=== PATIENT | male | born 1940 | race Hispanic/Latino ===

== ENCOUNTER 2017-12-31 15:12 | Inpatient (IN) | payer OTHER ==
--- NOTE | 2017-12-31 15:40 | ER ---
Nurse's Notes [facility] Name: Jamey Root Age: 77 yrs Sex: Male : 1940 Arrival Date: 12/31/2017 Time: 15:16 Bed 26 Private MD: Diagnosis: Extended spectrum beta lactamase (ESBL) resistance;Urinary tract infection, site not specified Presentation: 12/31 15:16 Presenting complaint: EMS states: patient was seen by his physician for testicular kr2 swelling and urinating around his catheter, his physician told him to come to ER. Transition of care: patient was not received from another setting of care. Onset of symptoms is unknown. Risk Assessment: Do you want to hurt yourself or someone else? Patient reports no desire to harm self or others. Initial Sepsis Screen: Does the patient meet any 2 criteria? No. Patient's initial sepsis screen is negative. Does the patient have a suspected source of infection? No. Patient's initial sepsis screen is negative. Care prior to arrival: None. 15:16 Method Of Arrival: EMS: [facility] kr2 15:16 Acuity: KRUPA 4 kr2 Triage Assessment: 15:26 General: Appears in no apparent distress. comfortable, well groomed, well nourished, kr2 Behavior is calm, cooperative, appropriate for age. Pain: Complains of pain in Testicles Pain does not radiate. Pain currently is 6 out of 10 on a pain scale. Quality of pain is described as burning, pressure, Is continuous, Alleviated by nothing. EENT: Oral mucosa is moist. Neuro: Level of Consciousness is awake, alert, obeys commands, Oriented to person, place, time, situation, paraplegia. Cardiovascular: Capillary refill < 3 seconds in bilateral fingers Patient's skin is warm and dry. Respiratory: Airway is patent Respiratory effort is even, unlabored, Respiratory pattern is regular, symmetrical. GI: Abdomen is flat, non-distended, Last BM was December 31, 2017. : Owusu in place to gravity drainage Urine is clear. : Reports urinating around catheter. Derm: Skin is intact, is healthy with good turgor, Skin is pink, warm \T\ dry. Musculoskeletal: Historical: - Allergies: 15:25 No Known Allergies; kr2 - Home Meds: 15:25 metformin 500 mg oral tab 1 tab 2 times per day for Type 2 Diabetes Mellitus [Active]; kr2 gabapentin 300 mg Oral cap 1 cap nightly [Active]; levothyroxine 150 mcg tab 1 tab once daily [Active]; - PMHx: 15:25 Anxiety; Chronic pain; Depression; Diabetes - NIDDM; Hypertension; Hypothyroidism; kr2 paraplegic; - PSHx: 15:25 Neck; Back; kr2 - Immunization history:: Adult Immunizations unknown. - Social history:: Smoking status: Patient/guardian denies using tobacco. - Ebola Screening: : No symptoms or risks identified at this time. Screenin:25 Abuse screen: Denies threats or abuse. Denies injuries from another. Nutritional kr2 screening: No deficits noted. Tuberculosis screening: No symptoms or risk factors identified. Fall Risk Gait- Normal/Bed Rest/Wheelchair (0 pts). Assessment: 15:30 General: Appears in no apparent distress. Behavior is calm, cooperative. Pain: Denies hb pain. Neuro: Level of Consciousness is awake, alert, obeys commands, Oriented to person, place, time, situation. Cardiovascular: Capillary refill < 3 seconds Patient's skin is warm and dry. Respiratory: Airway is patent Trachea midline Respiratory effort is even, unlabored, Respiratory pattern is regular, symmetrical, Breath sounds are clear bilaterally. GI: No signs and/or symptoms were reported involving the gastrointestinal system. : suprapubic catheter in place Urine is clear. EENT: No signs and/or symptoms were reported regarding the EENT system. Derm: Skin is intact, is healthy with good turgor, Skin is pink, warm \T\ dry. Musculoskeletal: paraplegic, wheelchair bound. 16:30 Reassessment: Patient appears in no apparent distress at this time. No changes from previously documented assessment. Patient and/or family updated on plan of care and expected duration. Pain level reassessed. Patient is alert, oriented x 3, equal unlabored respirations, skin warm/dry/pink. 17:21 Reassessment: Patient appears in no apparent distress at this time. Patient and/or family updated on plan of care and expected duration. Pain level reassessed. Patient is alert, oriented x 3, equal unlabored respirations, skin warm/dry/pink. Admission ordered, awaiting room assignment at this time. 18:15 Reassessment: Patient appears in no apparent distress at this time. No changes from hb previously documented assessment. Patient and/or family updated on plan of care and expected duration. Pain level reassessed. Patient is alert, oriented x 3, equal unlabored respirations, skin warm/dry/pink. Vital Signs: 15:19 BP 103 / 67; Pulse 70; Resp 17; Temp 97.7; Pulse Ox 97% on R/A; Weight 102.06 kg; kr2 Height 5 ft. 10 in. (177.80 cm); Pain 6/10; 16:00 BP 126 / 76; Pulse 74; Resp 15; Pulse Ox 100% on R/A; hb 17:00 BP 132 / 70; Pulse 71; Resp 15; Pulse Ox 100% on R/A; hb 18:00 BP 127 / 95; Pulse 70; Resp 16; Pulse Ox 100% on R/A; hb 19:25 BP 122 / 71; Pulse 75; Resp 18; Pulse Ox 100% on R/A; Pain 0/10; mg2 15:19 Body Mass Index 32.28 (102.06 kg, 177.80 cm) kr2 ED Course: 15:16 Patient arrived in ED. kr2 15:16 Malvin Katz PA is PHCP. jr8 15:16 Fawad Valenzuela MD is Attending Physician. jr8 15:19 Triage completed. kr2 15:30 Arm band placed on. kr2 15:30 Patient has correct armband on for positive identification. Bed in low position. Call kr2 light in reach. Side rails up X2. Pulse ox on. NIBP on. Door closed. Warm blanket given. Head of bed elevated. 15:39 Willy Ayers MD is Hospitalizing Provider. jr8 15:40 Swati Roberson MD is Hospitalizing Provider. jr8 15:45 Inserted saline lock: 20 gauge in left antecubital area, using aseptic technique. Blood hb collected. 15:45 Initial lab(s) drawn, by me, sent to lab. First set of blood cultures drawn by me. hb 15:58 Grazyna Singh, RN is Primary Nurse. iw 16:00 Second set of blood cultures drawn by me. hb 17:19 Sarina Clay, RN is Primary Nurse. hb 19:34 No provider procedures requiring assistance completed. Patient admitted, IV remains in mg2 place. Administered Medications: 16:06 Drug: Meropenem 1 grams Route: IV; Rate: calculated rate; Site: left antecubital; hb Outcome: 15:40 Decision to Hospitalize by Provider. jay 19:35 Admitted to Med/surg accompanied by tech, via stretcher, room 201, with chart, Report mg2 called to RN August 19:35 Condition: stable 19:35 Instructed on the need for admit, Demonstrated understanding of instructions. 19:55 Patient left the ED. mg2 Signatures: Grazyna Singh RN RN Malvin Jay PA PA jr8 Sarina Clay RN RN Carlota Mari RN RN kr2 Ronnie Leroy RN RN mg2
--- NOTE | 2017-12-31 15:40 | EDPHYS ---
Physician Documentation [facility] Name: Jamey Root Age: 77 yrs Sex: Male : 1940 Arrival Date: 12/31/2017 Time: 15:16 Bed 26 Private MD: ED Physician Fawad Valenzuela HPI: 12/31 16:07 This 77 yrs old Male presents to ER via EMS with complaints of Abnormal Lab jr8 Results. 16:07 The patient has not experienced similar symptoms in the past. The patient has been jr8 recently seen by a physician:. Patient stated that he had urine sample taken a few days ago. Stated that he was having discharge from his penis and episodic testicular swelling. Had been contacted today to come to ED for ESBL urine that will require IV antibiotics . Historical: - Allergies: 15:25 No Known Allergies; kr2 - Home Meds: 15:25 metformin 500 mg oral tab 1 tab 2 times per day for Type 2 Diabetes Mellitus [Active]; kr2 gabapentin 300 mg Oral cap 1 cap nightly [Active]; levothyroxine 150 mcg tab 1 tab once daily [Active]; - PMHx: 15:25 Anxiety; Chronic pain; Depression; Diabetes - NIDDM; Hypertension; Hypothyroidism; kr2 paraplegic; - PSHx: 15:25 Neck; Back; kr2 - Immunization history:: Adult Immunizations unknown. - Social history:: Smoking status: Patient/guardian denies using tobacco. - Ebola Screening: : No symptoms or risks identified at this time. ROS: 16:07 Eyes: Negative for injury, pain, redness, and discharge, ENT: Negative for injury, jr8 pain, and discharge, Neck: Negative for injury, pain, and swelling, Cardiovascular: Negative for chest pain, palpitations, and edema, Respiratory: Negative for shortness of breath, cough, wheezing, and pleuritic chest pain, Abdomen/GI: Negative for abdominal pain, nausea, vomiting, diarrhea, and constipation, Back: Negative for injury and pain, MS/Extremity: Negative for injury and deformity, Skin: Negative for injury, rash, and discoloration, Neuro: Negative for headache, weakness, numbness, tingling, and seizure. 16:07 : Positive for penile discharge, testicular pain Exam: 16:07 Cardiovascular: Regular rate and rhythm with a normal S1 and S2. No gallops, murmurs, jr8 or rubs. Normal PMI, no JVD. No pulse deficits. Respiratory: Lungs have equal breath sounds bilaterally, clear to auscultation and percussion. No rales, rhonchi or wheezes noted. No increased work of breathing, no retractions or nasal flaring. Abdomen/GI: Soft, non-tender, with normal bowel sounds. No distension or tympany. No guarding or rebound. No evidence of tenderness throughout. Back: No spinal tenderness. No costovertebral tenderness. Full range of motion. Skin: Warm, dry with normal turgor. Normal color with no rashes, no lesions, and no evidence of cellulitis. MS/ Extremity: Pulses equal, no cyanosis. Neurovascular intact. Full, normal range of motion. Neuro: Awake and alert, GCS 15, oriented to person, place, time, and situation. Cranial nerves II-XII grossly intact. Motor strength 5/5 in upper extremities. Patient is paraplegic. Sensory grossly intact. Vital Signs: 15:19 BP 103 / 67; Pulse 70; Resp 17; Temp 97.7; Pulse Ox 97% on R/A; Weight 102.06 kg; kr2 Height 5 ft. 10 in. (177.80 cm); Pain 6/10; 16:00 BP 126 / 76; Pulse 74; Resp 15; Pulse Ox 100% on R/A; hb 17:00 BP 132 / 70; Pulse 71; Resp 15; Pulse Ox 100% on R/A; hb 18:00 BP 127 / 95; Pulse 70; Resp 16; Pulse Ox 100% on R/A; hb 19:25 BP 122 / 71; Pulse 75; Resp 18; Pulse Ox 100% on R/A; Pain 0/10; mg2 15:19 Body Mass Index 32.28 (102.06 kg, 177.80 cm) kr2 MDM: 15:16 Patient medically screened. [facility] 15:38 Data reviewed: vital signs, nurses notes, lab test result(s), and as a result, I will [facility] admit patient. Data interpreted: Pulse oximetry: on room air is 97 %. Interpretation: normal. Counseling: I had a detailed discussion with the patient and/or guardian regarding: the historical points, exam findings, and any diagnostic results supporting the discharge/admit diagnosis, lab results, the need for further work-up and treatment in the hospital. Physician consultation: Lexi Lopez MD was called at 15:38, was contacted at 15:38, regarding consult, Wants patient admitted for ESBL. To have Hospitalist to admit and he will consult . 12/31 15:37 Order name: CBC with Diff; Complete Time: 16:12 [facility] 12/31 15:37 Order name: Basic Metabolic Panel; Complete Time: 16:24 [facility] 12/31 15:37 Order name: Blood Culture Adult (2) [facility] 12/31 15:37 Order name: IV; Complete Time: 16:06 [facility] 12/31 16:14 Order name: CONS Physician Consult EDMS Administered Medications: 16:06 Drug: Meropenem 1 grams Route: IV; Rate: calculated rate; Site: left antecubital; hb Disposition: 01/01 07:10 Co-signature as Attending Physician, Fawad Valenzuela MD I agree with the assessment and evaristo plan of care. Disposition: 12/31/17 15:40 Hospitalization ordered by Swtai Roberson for Inpatient Admission. Preliminary diagnosis are Extended spectrum beta lactamase (ESBL) resistance, Urinary tract infection, site not specified. - Bed requested for Telemetry/MedSurg (Inpatient). - Status is Inpatient Admission. mg2 - Condition is Stable. - Problem is new. - Symptoms are unchanged. UTI on Admission? Yes Signatures: Dispatcher [employer] EDMS Licha Sutherland Corey, MD MD cha Roszak, Josh, PA PA jr8 Sarina Clay RN RN Carlota Mari RN RN kr2 Ronnie Leroy RN RN mg2 Corrections: (The following items were deleted from the chart) 12/31 18:42 15:40 Hospitalization Ordered by Swati Roberson MD for Inpatient Admission. Preliminary bd diagnosis is Extended spectrum beta lactamase (ESBL) resistance; Urinary tract infection, site not specified. Bed requested for Telemetry/MedSurg (Inpatient). Status is Inpatient Admission. Condition is Stable. Problem is new. Symptoms are unchanged. UTI on Admission? Yes. jr8 19:55 18:42 12/31/2017 15:40 Hospitalization Ordered by Swati Roberson MD for Inpatient mg2 Admission. Preliminary diagnosis is Extended spectrum beta lactamase (ESBL) resistance; Urinary tract infection, site not specified. Bed requested for Telemetry/MedSurg (Inpatient). Status is Inpatient Admission. Condition is Stable. Problem is new. Symptoms are unchanged. UTI on Admission? Yes. bd
[2017-12-31] MEDS ORDERED: Meropenem 1 GM/100 ML BAG ONE ×2 (16:03→22:50)
[2017-12-31 16:05] LABS: Absolute Lymphocytes (CBC) 2.3 K/uL (0.7-4.9); Absolute Monocytes 0.3 K/uL (0.1-1.3); Absolute Neutrophil 3.9 K/uL (1.8-8.0); Basophils % 0.7 % (0-1.3); Hematocrit 41.2 % (39.6-49.0); Lymphocytes % 33.8 % (15.3-44.8); MCH 28.8 pg (27.0-35.0); MCV 85.8 fL (80-100); MPV 8.9 fL (7.6-11.3)
[2017-12-31 16:21] LABS: Potassium 3.7 mmol/L (3.5-5.1)
[2017-12-31] MEDS ORDERED: ONDANSETRON 4 MG/2 ML VIAL IV PRN (16:33)
[2017-12-31] MEDS ORDERED: ACETAMINOPHEN 500 MG TAB PO PRN (16:33)
[2017-12-31] MEDS ORDERED: Meropenem 1000 MG/VIAL IV SCH (17:00)
[2017-12-31] MEDS ORDERED: Meropenem 1,000 MG in NA CHLORIDE 0.9% 100 ML IV SCH (17:00)
--- NOTE | 2017-12-31 18:29 | P.HP ---
Certification for Inpatient Patient admitted to: Inpatient With expected LOS: >2 Midnights Patient will require the following post-hospital care: None Practitioner: I am a practitioner with admitting privileges, knowledge of patient current condition, hospital course, and medical plan of care. Services: Services provided to patient in accordance with Admission requirements found in Title 42 Section 412.3 of the Code of Federal Regulations Patient History Date of Service: 12/31/17 Primary Care Provider: Dr Lopez - Urology Reason for admission: ESBL UTI History of Present Illness: 77-year-old male with significant past medical history of her office of bilateral lower extremities secondary to spinal cord injury in 2007, diabetes, hypertension, hyperlipidemia, chronic pain syndrome, chronic indwelling suprapubic catheter who presented to the ED from the urologist office for urinary tract infection which was positive for E. es BL and marked LL. Patient has been having worsening of his symptoms and thus was brought over to the ER for IV antibiotics for his resistant bacteria. Patient has had made several attempts to arrange for outpatient IV therapy however due to patient's financial condition along with patient's worsening symptoms patient has unable to do so and thus require hospital admission at this time. Allergies No Known Allergies Allergy (Verified 10/19/14 11:05) Home Medications: Bupropion HCl [Bupropion HCl Sr] 1 tab PO DAILY 05/07/16 Gabapentin [Gralise] 1 tab PO BEDTIME 05/07/16 LORazepam [Ativan*] 1 tab PO TID 05/07/16 Levothyroxine Sodium [Synthroid] 1 tab PO DAILY 05/07/16 Metformin HCl [Glucophage] 1 tab PO BID 05/07/16 Olopatadine [Patanol Opth*] 1 drop EACH EYE DAILY 05/07/16 Trazodone [Desyrel*] 1 tab PO BEDTIME 05/07/16 Meropenem [Merrem] 1,000 mg IV Q8H 14 Days vial 12/11/16 - Past Medical/Surgical History Diabetic: Yes -: Spinal Cord Injury 2007 -: Paralysis in legs bilateral -: Diabetes -: Lower Extremity Edema -: Chronic Pain -: Hypothyroidism -: Anxiety -: Depression -: Spinal Surgery 2007 -: Back surgery -: Skin Grafts -: Suprapubic cath placement -: Circumcision - Family History Mother -: Cancer Brother Notes: Arthritis Sister Notes: Lupus - Social History Alcohol use: No CD- Drugs: No Caffeine use: Yes Review of Systems General: As per HPI Physical Examination - Physical Exam General: Alert, Oriented x3 HEENT: Atraumatic Neck: Supple Respiratory: Clear to auscultation bilaterally, Normal air movement Cardiovascular: Regular rate/rhythm, Normal S1 S2 Gastrointestinal: Normal bowel sounds, Soft and benign, Non-distended, No tenderness Musculoskeletal: Contractures Integumentary: No rashes Neurological: Normal speech, Abnormal strength, Abnormal tone Lymphatics: No axilla or inguinal lymphadenopathy - Studies Laboratory Data (last 24 hrs) 12/31/17 15:45: Sodium 138, Potassium 3.7, BUN 19 H, Creatinine 1.00, Glucose 183 H 12/31/17 15:45: WBC 6.9, Hgb 13.8, Hct 41.2, Plt Count 200 Assessment and Plan - Problems (Diagnosis) (1) UTI (urinary tract infection) Onset Date: 05/08/16 Current Visit: No Status: Acute Plan: Patient with urinary tract infection positive for E. S. BL and more balanced. Sensitive to meropenem. Patient is currently homebound due to paralysis of lower extremity due to spinal cord injury since 2007. Patient does not have the means for transportation neither does have the appropriate tools to help with his suprapubic catheter care along with payment for antibiotics. Patient brought over to the hospital for worsening of his symptoms and for further care. Unable to set up outpatient IV antibiotics due to patient's condition. -IV meropenem b.i.d. 1 g for a total 14 day -urology consulted, recommendations appreciated -patient will need a PICC line placed for long-term acute care placement for IV antibiotics Qualifiers: Urinary tract infection type: catheter-associated UTI Indwelling urinary catheter type: indwelling urethral catheter Encounter type: initial encounter Qualified Code(s): T83.511A - Infection and inflammatory reaction due to indwelling urethral catheter, initial encounter; N39.0 - Urinary tract infection , site not specified (2) Indwelling catheter present on admission Onset Date: 05/08/16 Current Visit: No Status: Chronic (3) Depression Current Visit: No Status: Chronic Qualifiers: Depression Type: unspecified (4) Diabetes mellitus type 2 Onset Date: 03/10/13 Current Visit: No Status: Chronic (5) GERD (gastroesophageal reflux disease) Current Visit: No Status: Chronic Qualifiers: Esophagitis presence: without esophagitis (6) HTN (hypertension) Current Visit: No Status: Chronic Qualifiers: Hypertension type: essential hypertension (7) Hypothyroidism Current Visit: No Status: Chronic Qualifiers: Hypothyroidism type: acquired Qualified Code(s): E03.9 - Hypothyroidism, unspecified (8) Paraplegia following spinal cord injury Current Visit: No Status: Chronic Discharge Plan: Home Plan to discharge in: 24 Hours - Advance Directives Does patient have a Living Will: No Does patient have a Durable POA for Healthcare: Yes - Code Status/Comfort Care Code Status Assessed: Yes Critical Care: No
[2017-12-31] MEDS: NA CHLORIDE 0.9% 1,000 ML IV SCH (21:16)
[2017-12-31] MEDS: ENOXAPARIN 40 MG/0.4 ML SQ SCH (21:16)
[2018-01-01] MEDS ORDERED: Meropenem 1,000 MG in NA CHLORIDE 0.9% 100 ML IV SCH ×2 (01:00→08:00)
[2018-01-01 01:53] VITALS: BMI 32.3
[2018-01-01] MEDS: NA CHLORIDE 0.9% 1,000 ML IV SCH ×4 (03:00→22:49)
[2018-01-01 05:40] LABS: Absolute Lymphocytes (CBC) 2.1 K/uL (0.7-4.9); Absolute Monocytes 0.5 K/uL (0.1-1.3); Absolute Neutrophil 5.8 K/uL (1.8-8.0); Basophils % 0.5 % (0-1.3); Hematocrit 39.3 % (39.6-49.0); Lymphocytes % 24.3 % (15.3-44.8); MCH 28.7 pg (27.0-35.0); MPV 9.1 fL (7.6-11.3); Monocytes % 5.4 % (3.3-12.3); RBC Red Blood Cell Count 4.62 M/uL (4.33-5.43)
[2018-01-01 05:41] LABS: Urine Appearance TURBID; Urine Bilirubin NEGATIVE (NEG); Urine Blood 1+ (NEG); Urine Color YELLOW; Urine Glucose NEGATIVE (NEG); Urine Protein TRACE (NEG); Urine pH 7.5 (5.0-7.0)
[2018-01-01 05:46] LABS: Urine Microscopic Reflex ORDER UMIC
[2018-01-01 05:52] LABS: ALT/SGPT 18 U/L (12-78); AST/SGOT 12 U/L (15-37); Albumin 2.9 g/dL (3.4-5.0); Alkaline Phosphatase 86 U/L (45-117); BUN Blood Urea Nitrogen 17 mg/dL (7-18); Bicarbonate 27 mmol/L (21-32); Bilirubin Total 0.6 mg/dL (0.2-1.0); Glucose Level 99 mg/dL (74-106); Potassium 3.8 mmol/L (3.5-5.1); Protein, Total 7.2 g/dL (6.4-8.2); Sodium Level 138 mmol/L (136-145)
[2018-01-01] MEDS ORDERED: POTASSIUM CL SA 10 MEQ TAB PO ONE (06:03)
[2018-01-01 06:11] LABS: Urine Bacteria LOADED /HPF (NONE SEEN); Urine Culture Reflex Order REFLEXED
[2018-01-01 06:12] LABS: Urine RBC <5 /HPF (NONE SEEN)
[2018-01-01] MEDS ORDERED: SODIUM CHLORIDE 0.9% 10ML INJ IV PRN ×2 (08:00)
[2018-01-01] MEDS ORDERED: PNEUMOCOCCAL VACCINE 0.5 ML IMVAC ONE (08:00)
[2018-01-01] MEDS: ENOXAPARIN 40 MG/0.4 ML SQ SCH (08:19)
[2018-01-01] MEDS: Meropenem 1,000 MG in NA CHLORIDE 0.9% 100 ML IV SCH ×2 (08:22→17:03)
[2018-01-01] MEDS: SODIUM CHLORIDE 0.9% 10ML INJ IV SCH ×2 (08:23→22:50)
--- NOTE | 2018-01-01 08:34 | RAD REPORT ---
EXAM DESCRIPTION: RAD - Chest Single View - 01/01/2018 3:20 am CLINICAL HISTORY: PICC Placement COMPARISON: Chest Single View dated 12/09/2016; Chest Single View dated 12/06/2016; Chest Single View da paul 05/07/2016; CHEST SINGLE VIEW dated 07/10/2012 FINDINGS: Portable chest was obtained following placement of a right upper extremity PICC line. The catheter tip projects over the SVC..
--- NOTE | 2018-01-01 13:34 | P.PN ---
Subjective Date of Service: 01/01/18 Primary Care Provider: Dr Lopez - Urology Chief Complaint: ESBL UTI Patient seen and examined at bedside with RN. Chart reviewed. Case discussed with urology. Currently patient is awaiting setup for home health with IV antibiotics. Patient had ESBL growing. Has PICC line in place already Review of Systems General: As per HPI Physical Examination - Vital Signs Temperature: 97.4 F Blood Pressure: 125/70 Pulse: 68 Respirations: 17 Pulse Ox (%): 0 - Physical Exam General: Alert, In no apparent distress HEENT: Atraumatic, PERRLA, EOMI Neck: Supple, JVD not distended Respiratory: Clear to auscultation bilaterally, Normal air movement Cardiovascular: Regular rate/rhythm, Normal S1 S2 Gastrointestinal: Normal bowel sounds, No tenderness Musculoskeletal: No tenderness Integumentary: No rashes Neurological: Other (Parapelgic) Lymphatics: No axilla or inguinal lymphadenopathy - Studies Laboratory Data (last 24 hrs) 12/31/17 15:45: Sodium 138, Potassium 3.7, BUN 19 H, Creatinine 1.00, Glucose 183 H 12/31/17 15:45: WBC 6.9, Hgb 13.8, Hct 41.2, Plt Count 200 Medications List Reviewed: Yes Assessment & Plan - Problems (Diagnosis) (1) UTI (urinary tract infection) Onset Date: 05/08/16 Current Visit: No Status: Acute Plan: Patient with urinary tract infection positive for ESBL. Sensitive to meropenem. -Patient is currently homebound due to paralysis of lower extremity due to spinal cord injury since 2007. Patient does not have the means for transportation neither does have the appropriate tools to help with his suprapubic catheter care along with payment for antibiotics. -Patient brought over to the hospital for worsening of his symptoms and for further care. -Will try to setup HH if possible -IV meropenem b.i.d. 1 g for a total 14 days -urology consulted, recommendations appreciated -PICC line in place. Qualifiers: Urinary tract infection type: catheter-associated UTI Indwelling urinary catheter type: indwelling urethral catheter Encounter type: initial encounter Qualified Code(s): T83.511A - Infection and inflammatory reaction due to indwelling urethral catheter, initial encounter; N39.0 - Urinary tract infection , site not specified (2) Indwelling catheter present on admission Onset Date: 05/08/16 Current Visit: No Status: Chronic (3) Depression Onset Date: 01/01/18 Current Visit: Yes Status: Chronic Qualifiers: Depression Type: unspecified (4) Diabetes mellitus type 2 Onset Date: 03/10/13 Current Visit: No Status: Chronic (5) GERD (gastroesophageal reflux disease) Onset Date: 01/01/18 Current Visit: Yes Status: Chronic Qualifiers: Esophagitis presence: without esophagitis (6) HTN (hypertension) Onset Date: 01/01/18 Current Visit: Yes Status: Chronic Qualifiers: Hypertension type: essential hypertension (7) Hypothyroidism Onset Date: 01/01/18 Current Visit: Yes Status: Chronic Qualifiers: Hypothyroidism type: acquired Qualified Code(s): E03.9 - Hypothyroidism, unspecified (8) Paraplegia following spinal cord injury Onset Date: 01/01/18 Current Visit: Yes Status: Chronic Discharge Plan: Home Plan to discharge in: 48 Hours - Code Status/Comfort Care Code Status Assessed: Yes Critical Care: No
--- NOTE | 2018-01-01 20:32 | CON ---
History Of Present Illness: A 77-year-old gentleman with significant past medical history of bilater al lower extremity issues secondary to spinal cord injury in 2007, history of diabetes, hypertension, hyperlipidemia, chronic pain syndrome, chronic indwelling Owusu catheter, who presents to the ED fro m the urologist's office(in emergency room with urine culture positive for 2 bugs, one is ESBL and an other one was sensitive to meropenem). He needs a PICC line placed, 7-10 days of IV antibiotics. Pr marina is the patient could not arrange this as an outpatient due to financial and transportation issu es, so was admitted to the hospital and consult a director social service for consultation. He has been admitt ed by the hospitalist service. Allergies: NO KNOWN DRUG ALLERGIES. Home Medications: Baclofen, gabapentin, Ativan, levothyroxine, metformin, olopatadine, trazodone, me ropenem. Past Medical History: He is diabetic, spinal cord injury 2007, paralysis to legs bilaterally, histor y of diabetes, lower extremity edema, chronic pain, hypothyroidism, anxiety, depression, back surgeri es, skin grafts, suprapubic catheter, history of circumcision. Family History: Mother with cancer. Brother with arthritis, lupus. Social History: No alcohol or drug use. Some caffeine use. Review of Systems: 10-point review of system all negative. Physical Examination: General: Alert, oriented, afebrile, stable. HEENT: Atraumatic, normocephalic. Respiratory: Clear. Cardiovascular: S1, S2. Gastrointestinal: Bowel sounds. Musculoskeletal: Some contracture to this lower extremity. Studies: Normal chemistries. White count normal 6.8. Persistent UTI being treated with PICC line and meropenem 1 g IV for total 14 days. Assessment And Plan: He has an indwelling suprapubic catheter changes every 2 weeks. History of dep ression, diabetes type 2, gastroesophageal reflux disease, hypertension, hypothyroidism, paraplegia f ollowing spinal cord injury. Continue management. Get director social service consultation to arrange home medication for him. He does hav e home health. Thank you very much. DIANE/LAZARO Voice ID: [id number] Report ID: [id number]
[2018-01-01] MEDS ORDERED: GABAPENTIN 300 MG CAP PO SCH (21:00)
[2018-01-02] MEDS: Meropenem 1,000 MG in NA CHLORIDE 0.9% 100 ML IV SCH ×3 (01:49→17:18)
[2018-01-02 04:52] LABS: Absolute Lymphocytes (CBC) 2.4 K/uL (0.7-4.9); Absolute Monocytes 0.4 K/uL (0.1-1.3); Absolute Neutrophil 4.4 K/uL (1.8-8.0); Basophils % 0.7 % (0-1.3); Eosinophils % 2.8 % (0-4.4); Hematocrit 38.9 % (39.6-49.0); Lymphocytes % 31.9 % (15.3-44.8); MCV 83.9 fL (80-100); MPV 8.8 fL (7.6-11.3); Monocytes % 5.2 % (3.3-12.3); RBC Red Blood Cell Count 4.63 M/uL (4.33-5.43)
[2018-01-02 05:09] LABS: ALT/SGPT 16 U/L (12-78); AST/SGOT 10 U/L (15-37); Albumin 2.6 g/dL (3.4-5.0); Alkaline Phosphatase 78 U/L (45-117); BUN Blood Urea Nitrogen 11 mg/dL (7-18); Bicarbonate 28 mmol/L (21-32); Bilirubin Total 0.6 mg/dL (0.2-1.0); Glucose Level 127 mg/dL (74-106); Magnesium 1.9 mg/dL (1.8-2.4); Phosphorus 2.2 mg/dL (2.5-4.9); Potassium 3.9 mmol/L (3.5-5.1); Protein, Total 6.7 g/dL (6.4-8.2); Sodium Level 142 mmol/L (136-145)
[2018-01-02] MEDS ORDERED: POTASSIUM PHOS IN 0.9 % NACL 15 MMOL/250 ML BAG IV ONE (06:04)
[2018-01-02] MEDS ORDERED: LEVOTHYROXINE SOD 0.075 MG TAB PO SCH (06:30)
[2018-01-02] MEDS: ENOXAPARIN 40 MG/0.4 ML SQ SCH (08:55)
[2018-01-02] MEDS: SODIUM CHLORIDE 0.9% 10ML INJ IV SCH (08:55)
[2018-01-02 09:41] VITALS: O2SAT 96
--- NOTE | 2018-01-02 15:52 | P.DS ---
Admission Date: 12/31/17 Discharge Date: 01/02/18 Primary Care Provider: Dr Ramirez - Urology Disposition: ROUTINE DISCHARGE Discharge Condition: GOOD Reason for Admission: ESBL UTI Consultations: Dr Ramirez - Problems (1) UTI (urinary tract infection) Onset Date: 05/08/16 Current Visit: No Status: Acute Qualifiers: Urinary tract infection type: catheter-associated UTI Indwelling urinary catheter type: indwelling urethral catheter Encounter type: initial encounter Qualified Code(s): T83.511A - Infection and inflammatory reaction due to indwelling urethral catheter, initial encounter; N39.0 - Urinary tract infection , site not specified (2) Indwelling catheter present on admission Onset Date: 05/08/16 Current Visit: No Status: Chronic (3) Depression Onset Date: 01/01/18 Current Visit: Yes Status: Chronic Qualifiers: Depression Type: unspecified (4) Diabetes mellitus type 2 Onset Date: 03/10/13 Current Visit: No Status: Chronic (5) GERD (gastroesophageal reflux disease) Onset Date: 01/01/18 Current Visit: Yes Status: Chronic Qualifiers: Esophagitis presence: without esophagitis (6) HTN (hypertension) Onset Date: 01/01/18 Current Visit: Yes Status: Chronic Qualifiers: Hypertension type: essential hypertension (7) Hypothyroidism Onset Date: 01/01/18 Current Visit: Yes Status: Chronic Qualifiers: Hypothyroidism type: acquired Qualified Code(s): E03.9 - Hypothyroidism, unspecified (8) Paraplegia following spinal cord injury Onset Date: 01/01/18 Current Visit: Yes Status: Chronic Brief History of Present Illness: 77-year-old male with significant past medical history of her office of bilateral lower extremities secondary to spinal cord injury in 2007, diabetes, hypertension, hyperlipidemia, chronic pain syndrome, chronic indwelling suprapubic catheter who presented to the ED from the urologist office for urinary tract infection which was positive for E. es BL and marked LL. Patient has been having worsening of his symptoms and thus was brought over to the ER for IV antibiotics for his resistant bacteria. Patient has had made several attempts to arrange for outpatient IV therapy however due to patient's financial condition along with patient's worsening symptoms patient has unable to do so and thus require hospital admission at this time. Hospital Course: Overall during the hospital stay patient remained stable Patient was initially admitted to the hospital for UTI secondary to E. coli which is multi-drug resistant. Patient had a PICC line placed here in the hospital. Patient was started on IV meropenem. Home health was set up for patient to have home and fusion of meropenem. Initially the plan was dispensed to the patient to L tach however patient does not have any L tach benefits and thus was discharged home under stable condition with home health to do IV antibiotics at the house. Patient will be needing IV antibiotics for total of 7 days and follow up with urology after that. Patient may be continued on IV antibiotics at that time once evaluated by neurology for another 7 days. Vital Signs/Physical Exam: Temp Pulse Resp BP Pulse Ox 97 F 70 18 101/56 L 96 01/02/18 12:00 01/02/18 12:00 01/02/18 12:00 01/02/18 12:00 01/02/18 12:00 General: Alert, In no apparent distress HEENT: Atraumatic, PERRLA, EOMI Neck: Supple, JVD not distended Respiratory: Clear to auscultation bilaterally, Normal air movement Cardiovascular: Regular rate/rhythm, Normal S1 S2 Gastrointestinal: Normal bowel sounds, No tenderness Musculoskeletal: No tenderness Integumentary: No rashes Neurological: Normal speech, Normal tone, Normal affect Lymphatics: No axilla or inguinal lymphadenopathy Laboratory Data at Discharge: WBC 7.4 K/uL (4.3-10.9) D 01/02/18 04:35 Hgb 13.4 g/dL (13.6-17.9) L 01/02/18 04:35 Hct 38.9 % (39.6-49.0) L 01/02/18 04:35 Plt Count 187 K/uL (152-406) 01/02/18 04:35 Sodium 142 mmol/L (136-145) 01/02/18 04:35 Potassium 3.9 mmol/L (3.5-5.1) 01/02/18 04:35 BUN 11 mg/dL (7-18) 01/02/18 04:35 Creatinine 0.70 mg/dL (0.55-1.3) 01/02/18 04:35 Glucose 127 mg/dL (74-106) H 01/02/18 04:35 Phosphorus 2.2 mg/dL (2.5-4.9) L 01/02/18 04:35 Magnesium 1.9 mg/dL (1.8-2.4) 01/02/18 04:35 Total Bilirubin 0.6 mg/dL (0.2-1.0) 01/02/18 04:35 AST 10 U/L (15-37) L 01/02/18 04:35 ALT 16 U/L (12-78) 01/02/18 04:35 Alkaline Phosphatase 78 U/L (45-117) 01/02/18 04:35 Home Medications: Gabapentin [Neurontin*] 300 mg PO BEDTIME 12/31/17 Levothyroxine Sodium [Synthroid] 1 tab PO DAILY 12/31/17 Metformin ER [Glucophage ER*] 1 tab PO BID 12/31/17 Meropenem [Merrem 1 GM/100 ML NS IVPB] 1 gm IV BID #28 bag 01/02/18 New Medications: Meropenem [Merrem 1 GM/100 ML NS IVPB] 1 gm IV BID #28 bag Patient Discharge Instructions: Please f.u with Dr ramirez in 1 to 2 week post discharge. New medication. Merrem 1g BID for 14 days for ESBL in the urine Diet: Regular Activity: Ad sheron Followup: Lexi Ramirez MD [ACTIVE - CAN ADMIT] - 1 Week
[2018-01-02 20:11] VITALS: BP 146/78; TEMP 97.5
--- NOTE | 2018-01-02 22:01 | PN ---
Subjective: The patient is doing well. Receiving IV antibiotics. Objective: Vital signs: Stable. Assessment: Extended-spectrum beta-lactamase. Plan: On meropenem IV. PICC line in place. We will send him home today. Thanks to all the medical people who have helped to arrange this. BENJA Voice ID: [id number] Report ID: [id number]
== END 2018-01-02 20:00 | disposition home health service (06) | DRG 699 ==
LOC: ER 15:12 → ERHOLD 16:22 → 2ND 19:38
PROVIDERS: ADMIT Family Medicine; ATTEND Family Medicine
PROC: 02HV33Z Insertion of Infusion Device into Superior Vena Cava, Percutaneous Approach (ICD-10-PCS; principal; 2018-01-01)
DX: T83.510A Infection and inflammatory reaction due to cystostomy catheter, initial encounter (principal); G82.20 Paraplegia, unspecified; G89.4 Chronic pain syndrome; Z16.12 Extended spectrum beta lactamase (ESBL) resistance; B96.20 Unspecified Escherichia coli [E. coli] as the cause of diseases classified elsewhere; E11.9 Type 2 diabetes mellitus without complications; F32.9 Major depressive disorder, single episode, unspecified; K21.9 Gastro-esophageal reflux disease without esophagitis; E03.9 Hypothyroidism, unspecified; T14.8XXS Other injury of unspecified body region, sequela; I10 Essential (primary) hypertension; Z79.84 Long term (current) use of oral hypoglycemic drugs
CPT/HCPCS: 36415; 71045; 80048; 80053; 81003; 81015; 82962; 83735; 84100; 85025; 87040; 87077; 87086; 87088; 87186; 94760; 96374; 99285; J1650; J2185; J7030

== ENCOUNTER 2018-01-28 13:59 | Emergency (ER) | payer OTHER ==
[2018-01-28] MEDS ORDERED: LIDOCAINE 1% W/EPI 1:100,000 MDV 50 ML VIAL ONE (15:10)
[2018-01-28] MEDS ORDERED: TETANUS & DIPHTHERIA TOX,ADULT 0.5 ML VIAL ONE (15:20)
--- NOTE | 2018-01-28 16:14 | ER ---
Nurse's Notes [facility] Name: Jamey Root Age: 77 yrs Sex: Male : 1940 Arrival Date: 01/28/2018 Time: 14:09 Bed 24 Private MD: Diagnosis: Laceration without foreign body, left lower leg Presentation: 01/28 14:09 Presenting complaint: EMS states: Patient cut side of left calf while at the park on a aj bench today just [employer]. Approx 4" laceration reported by EMS, dressed [employer]. Bleeding controlled. Transition of care: patient was not received from another setting of care. Complicating Factors: There are no complicating factors for this patient. Onset of symptoms was January 28, 2018. Risk Assessment: Do you want to hurt yourself or someone else? Patient reports no desire to harm self or others. Initial Sepsis Screen: Does the patient meet any 2 criteria? No. Patient's initial sepsis screen is negative. Does the patient have a suspected source of infection? No. Patient's initial sepsis screen is negative. Care prior to arrival: Injury dressed. 14:09 Method Of Arrival: EMS: [facility] aj 14:09 Acuity: KRUPA 4 aj Triage Assessment: 14:12 General: Appears in no apparent distress. comfortable, Behavior is calm, cooperative, aj appropriate for age. Pain: Denies pain. Neuro: Level of Consciousness is awake, alert, obeys commands, Oriented to person, place, time, situation, Appropriate for age. Respiratory: Airway is patent Respiratory effort is even, unlabored, Respiratory pattern is regular, symmetrical. Derm: Skin is intact, is healthy with good turgor, Skin is pink, warm \\T\\ dry. normal. Musculoskeletal: Swelling present in right foot and left foot. Injury Description: Laceration sustained to lateral aspect of left calf is 2.6 to 7.5 cm long, not bleeding, was sustained 30-60 minutes ago. is bleeding a small amount. 14:12 : Owusu in place to gravity drainage. aj Historical: - Allergies: 14:12 No Known Allergies; aj - Home Meds: 14:12 gabapentin 300 mg Oral cap 1 cap nightly [Active]; levothyroxine 150 mcg tab 1 tab once aj daily [Active]; metformin 500 mg Oral tab 1 tab 2 times per day for Type 2 Diabetes Mellitus [Active]; - PMHx: 14:12 Anxiety; Chronic pain; Depression; Diabetes - NIDDM; Hypertension; Hypothyroidism; aj paraplegic; - PSHx: 14:12 Neck; Back; aj - Immunization history:: Last tetanus immunization: unknown. - Social history:: Smoking status: Patient/guardian denies using tobacco. - Ebola Screening: : Patient negative for fever greater than or equal to 101.5 degrees Fahrenheit, and additional compatible Ebola Virus Disease symptoms Patient denies exposure to infectious person Patient denies travel to an Ebola-affected area in the 21 days before illness onset No symptoms or risks identified at this time. Screenin:32 Abuse screen: Denies threats or abuse. Denies injuries from another. Nutritional aj screening: No deficits noted. Tuberculosis screening: No symptoms or risk factors identified. Fall Risk Gait- Impaired (20 pts.). Assessment: 14:32 Reassessment: See triage. Injury Description: Laceration sustained to lateral aspect of aj left calf. 16:30 Reassessment: Patient appears in no apparent distress at this time. Patient and/or mg2 family updated on plan of care and expected duration. Pain level reassessed. Patient is alert, oriented x 3, equal unlabored respirations, skin warm/dry/pink. 16:42 Reassessment: Patient appears in no apparent distress at this time. Patient and/or mg2 family updated on plan of care and expected duration. Pain level reassessed. Patient is alert, oriented x 3, equal unlabored respirations, skin warm/dry/pink. Vital Signs: 14:12 BP 106 / 73; Pulse 71; Resp 17; Temp 98.1; Pulse Ox 96% on R/A; Weight 102.06 kg; aj Height 5 ft. 10 in. (177.80 cm); Pain 0/10; 15:17 BP 127 / 80; Pulse 60; Resp 18; Pulse Ox 97% on R/A; Pain 4/10; mg2 16:42 BP 122 / 78; Pulse 78; Resp 18; Pulse Ox 100% on R/A; Pain 0/10; mg2 14:12 Body Mass Index 32.28 (102.06 kg, 177.80 cm) aj ED Course: 14:09 Patient arrived in ED. aj 14:11 Triage completed. aj 14:12 Arm band placed on left wrist. Patient placed in an exam room. aj 14:32 Caprice Short, RN is Primary Nurse. aj 14:32 Patient has correct armband on for positive identification. Placed in gown. Bed in low aj position. Call light in reach. Side rails up X2. Pulse ox on. NIBP on. 14:32 IV is patent, Double lumen ORION PICC in place from home health. Dressing clean and aj intact. 15:01 Malvin Katz PA is PHCP. jr8 15:01 Salty Albarado MD is Attending Physician. jr8 15:17 Ronnie Leroy, RN is Primary Nurse. mg2 15:51 Assist provider with laceration repair on lateral aspect of left calf using sutures. kr2 Set up tray. Performed by Malvin SCHNEIDER Patient tolerated well. 16:30 no peripheral iv inserted in ed. mg2 Administered Medications: 16:13 Drug: Tetanus-Diphtheria Toxoid Adult 0.5 ml {Director Oncology: [place]. Exp: mg2 02/20/2020. Lot #: [id number]. } Route: IM; Site: right deltoid; 16:14 Follow up: Response: No adverse reaction; Medication administered at discharge. mg2 16:41 Follow up: Response: No adverse reaction; Medication administered at discharge. mg2 Outcome: 16:13 Discharge ordered by . jr 16:41 Discharged to home via ambulance. mg2 16:41 Condition: stable 16:41 Discharge instructions given to patient, Instructed on discharge instructions, follow up and referral plans. medication usage, Demonstrated understanding of instructions, follow-up care, medications, Prescriptions given X 1. 16:42 Patient left the ED. mg2 Signatures: Caprice Short, NORMA RN Malvin Ace PA PA jr8 Carlota Mari RN RN kr2 Ronnie Leroy, NORMA GREEN mg2
--- NOTE | 2018-01-28 16:14 | EDPHYS ---
Physician Documentation [facility] Name: Jamey Root Age: 77 yrs Sex: Male : 1940 Arrival Date: 01/28/2018 Time: 14:09 Bed 24 Private MD: ED Physician Salty Albarado HPI: 01/28 15:06 This 77 yrs old Male presents to ER via EMS with complaints of Laceration. jr8 15:06 The patient has a laceration related to: walking occurred at home, and there are no jr8 complicating factors. The injury was accidental. The laceration(s) is(are) located on the left leg. Onset: The symptoms/episode began/occurred acutely, today. Associated signs and symptoms: The patient has no apparent associated signs or symptoms. The patient has not experienced similar symptoms in the past. The patient has not recently seen a physician. Stated that he bumped into a corner causing laceration to lower left leg. Historical: - Allergies: 14:12 No Known Allergies; aj - Home Meds: 14:12 gabapentin 300 mg Oral cap 1 cap nightly [Active]; levothyroxine 150 mcg tab 1 tab once aj daily [Active]; metformin 500 mg Oral tab 1 tab 2 times per day for Type 2 Diabetes Mellitus [Active]; - PMHx: 14:12 Anxiety; Chronic pain; Depression; Diabetes - NIDDM; Hypertension; Hypothyroidism; aj paraplegic; - PSHx: 14:12 Neck; Back; aj - Immunization history:: Last tetanus immunization: unknown. - Social history:: Smoking status: Patient/guardian denies using tobacco. - Ebola Screening: : Patient negative for fever greater than or equal to 101.5 degrees Fahrenheit, and additional compatible Ebola Virus Disease symptoms Patient denies exposure to infectious person Patient denies travel to an Ebola-affected area in the 21 days before illness onset No symptoms or risks identified at this time. ROS: 15:06 Eyes: Negative for injury, pain, redness, and discharge, ENT: Negative for injury, jr8 pain, and discharge, Neck: Negative for injury, pain, and swelling, Cardiovascular: Negative for chest pain, palpitations, and edema, Respiratory: Negative for shortness of breath, cough, wheezing, and pleuritic chest pain, Abdomen/GI: Negative for abdominal pain, nausea, vomiting, diarrhea, and constipation, Back: Negative for injury and pain, MS/Extremity: Negative for injury and deformity, Neuro: Negative for headache, weakness, numbness, tingling, and seizure. 15:06 Skin: Positive for laceration(s), of the left leg. Exam: 15:06 Cardiovascular: Regular rate and rhythm with a normal S1 and S2. No gallops, murmurs, jr8 or rubs. Normal PMI, no JVD. No pulse deficits. Respiratory: Lungs have equal breath sounds bilaterally, clear to auscultation and percussion. No rales, rhonchi or wheezes noted. No increased work of breathing, no retractions or nasal flaring. MS/ Extremity: Pulses equal, no cyanosis. Neurovascular intact. Full, normal range of motion. Neuro: Awake and alert, GCS 15, oriented to person, place, time, and situation. Cranial nerves II-XII grossly intact. Motor strength 5/5 in all extremities. Sensory grossly intact. Cerebellar exam normal. Normal gait. 15:06 Skin: injury, laceration(s), the wound is approximately 10 cm(s), with a depth of .5 cm(s), of the lateral aspect of left calf, that can be described as no foreign body, irregular, without bleeding. Vital Signs: 14:12 BP 106 / 73; Pulse 71; Resp 17; Temp 98.1; Pulse Ox 96% on R/A; Weight 102.06 kg; aj Height 5 ft. 10 in. (177.80 cm); Pain 0/10; 15:17 BP 127 / 80; Pulse 60; Resp 18; Pulse Ox 97% on R/A; Pain 4/10; mg2 16:42 BP 122 / 78; Pulse 78; Resp 18; Pulse Ox 100% on R/A; Pain 0/10; mg2 14:12 Body Mass Index 32.28 (102.06 kg, 177.80 cm) aj Laceration: 16:12 Wound Repair of 10cm ( 3.9in ) subcutaneous laceration to lateral aspect of left calf. jr8 Irregularly shaped.. Skin/tissue flap noted.. Minimal bleeding noted.. Distal neuro/vascular/tendon intact. Anesthesia: Local anesthetic administered with 15 mls of 1% lidocaine w/ Epi. Wound prep: Extensive cleansing with betadine, Wound irrigation with saline, Wound explored extensively. Subcutaneous tissue closed with 4 4-0 Vicryl using interrupted sutures and sterile technique. Skin closed with 16 3-0 Prolene using horizontal mattress sutures and sterile technique. Patient tolerated well. MDM: 15:01 Patient medically screened. jr8 16:12 Data reviewed: vital signs, nurses notes, and as a result, I will discharge patient. jr8 Data interpreted: Pulse oximetry: on room air is 97 %. Interpretation: normal. Counseling: I had a detailed discussion with the patient and/or guardian regarding: the historical points, exam findings, and any diagnostic results supporting the discharge/admit diagnosis, the need for outpatient follow up, a family practitioner, to return to the emergency department if symptoms worsen or persist or if there are any questions or concerns that arise at home. Administered Medications: 16:13 Drug: Tetanus-Diphtheria Toxoid Adult 0.5 ml {Development Eng: [employer]. Exp: mg2 02/20/2020. Lot #: [id number]. } Route: IM; Site: right deltoid; 16:14 Follow up: Response: No adverse reaction; Medication administered at discharge. mg2 16:41 Follow up: Response: No adverse reaction; Medication administered at discharge. mg2 Disposition: 16:43 Co-signature as Attending Physician, Salty Albarado MD I agree with the assessment and kdr plan of care. Disposition: 01/28/18 16:13 Discharged to Home. Impression: Laceration without foreign body, left lower leg. - Condition is Stable. - Discharge Instructions: Laceration Care, Adult. - Prescriptions for Keflex 500 mg Oral Capsule - take 1 capsule by ORAL route every 6 hours for 10 days; 40 capsule. - Medication Reconciliation Form, Thank You Letter, Antibiotic Education, Prescription Opioid Use form. - Follow up: Private Physician; When: 10 - 14 days; Reason: Wound Recheck, Recheck today's complaints, Continuance of care, Staple/Suture removal, Re-evaluation by your physician. - Problem is new. - Symptoms have improved. Signatures: Caprice Short RN RN aj Rittger, Kevin, MD MD [facility] Malvin Katz PA PA jr8 Ronnie Leroy RN RN mg2 Corrections: (The following items were deleted from the chart) 16:42 16:13 01/28/2018 16:13 Discharged to Home. Impression: Laceration without foreign body, mg2 left lower leg. Condition is Stable. Forms are Medication Reconciliation Form, Thank You Letter, Antibiotic Education, Prescription Opioid Use. Follow up: Private Physician; When: 10 - 14 days; Reason: Wound Recheck, Recheck today's complaints, Continuance of care, Staple/Suture removal, Re-evaluation by your physician. Problem is new. Symptoms have improved. jr8
[2018-01-28 17:01] VITALS: TEMP 98.1
[2018-01-28 17:03] VITALS: BP 122/78; O2SAT 100
== END 2018-01-28 16:42 | disposition home or self-care (01) ==
LOC: ER 13:59
PROC: 0JQP0ZZ Repair Left Lower Leg Subcutaneous Tissue and Fascia, Open Approach (ICD-10-PCS; principal; 2018-01-28)
DX: S81.812A Laceration without foreign body, left lower leg, initial encounter (principal); W19.XXXA Unspecified fall, initial encounter; Y93.01 Activity, walking, marching and hiking; Y92.009 Unspecified place in unspecified non-institutional (private) residence as the place of occurrence of the external cause; Z23 Encounter for immunization; I10 Essential (primary) hypertension; E11.9 Type 2 diabetes mellitus without complications; E03.9 Hypothyroidism, unspecified; F41.9 Anxiety disorder, unspecified; F32.9 Major depressive disorder, single episode, unspecified
CPT/HCPCS: 90714; 99284

== ENCOUNTER 2018-10-13 13:45 | Observation (INO) | payer OTHER ==
--- NOTE | 2018-10-13 15:22 | ER ---
Nurse's Notes [facility] Name: Kiko Root Age: 78 yrs Sex: Male : 1940 Arrival Date: 10/13/2018 Time: 13:50 Bed 16 Private MD: Diagnosis: Urinary tract infection, site not specified Presentation: 10/13 13:51 Presenting complaint: EMS states: Dr told pt to come to ED for PICC line placement, pt ph states, " Dr Lopez said I have 3 types of bacteria in my urine." Pt w/ suprapubic catheter in place, denies fever, N/V/D, VSS in route, BGL 220. Transition of care: patient was not received from another setting of care. Onset of symptoms was October 13, 2018. Risk Assessment: Do you want to hurt yourself or someone else? Patient reports no desire to harm self or others. Initial Sepsis Screen: Does the patient meet any 2 criteria? No. Patient's initial sepsis screen is negative. Does the patient have a suspected source of infection? Yes: Dysuria/Frequency/Urgency/UTI Catheter related infection (Owusu/dialysis/PICC/central line). Care prior to arrival: None. 13:51 Method Of Arrival: EMS: [facility] 13:51 Acuity: KRUPA 3 ph Historical: - Allergies: 14:01 No Known Allergies; ph - Home Meds: 14:01 gabapentin 300 mg Oral cap 1 cap nightly [Active]; metformin 500 mg Oral tab 1 tab 2 ph times per day for Type 2 Diabetes Mellitus [Active]; tizanidine 2 mg oral cap 1 caps twice a day [Active]; levothyroxine 175 mcg oral tab [Active]; meloxicam 7.5 mg oral tab 1 tab once daily [Active]; trazodone 50 mg Oral tab 1 tab daily [Active]; - PMHx: 14:01 Anxiety; Chronic pain; Depression; Diabetes - NIDDM; Hypothyroidism; Hypertension; ph paraplegic; - PSHx: 14:01 Neck; Back; ph - Immunization history:: Adult Immunizations unknown. - Social history:: Smoking status: Patient uses tobacco products, smokes one-half pack cigarettes per day. - Ebola Screening: : No symptoms or risks identified at this time. - Family history:: not pertinent. - Hospitalizations: : No recent hospitalization is reported. Screenin:02 Abuse screen: Denies threats or abuse. Denies injuries from another. Nutritional ph screening: No deficits noted. Tuberculosis screening: No symptoms or risk factors identified. Fall Risk None identified. Assessment: 15:00 General: Appears in no apparent distress. comfortable, well groomed, Behavior is calm, ph cooperative, appropriate for age, Denies fever, feeling ill. Pain: Denies pain. Neuro: Level of Consciousness is awake, alert, obeys commands, Oriented to person, place, time, situation. Cardiovascular: Capillary refill < 3 seconds in bilateral fingers Patient's skin is warm and dry. Respiratory: Airway is patent Respiratory effort is even, unlabored, Respiratory pattern is regular, symmetrical. GI: Patient currently denies diarrhea, nausea, vomiting. : suprapubic catheter in place to gravity drainage Urine is clear. Derm: Skin is intact, is healthy with good turgor, Skin is pink, warm \\T\\ dry. Musculoskeletal: Range of motion: limited in lower extremeties, pt is paraplegic. 16:00 Reassessment: Patient appears in no apparent distress at this time. Patient and/or ph family updated on plan of care and expected duration. Pain level reassessed. Patient is alert, oriented x 3, equal unlabored respirations, skin warm/dry/pink. 17:37 Reassessment: Patient appears in no apparent distress at this time. Patient and/or ph family updated on plan of care and expected duration. Pain level reassessed. Patient is alert, oriented x 3, equal unlabored respirations, skin warm/dry/pink. Pt resting quietly, awaiting room assignment. 18:23 Reassessment: Patient appears in no apparent distress at this time. Patient and/or ph family updated on plan of care and expected duration. Pain level reassessed. Patient is alert, oriented x 3, equal unlabored respirations, skin warm/dry/pink. Pt resting quietly, eating sandwich, tolerating well, Owusu bag noted to be leaking onto floor, new collection bag placed. 19:50 Reassessment: Report given to Bhavik GREEN. ph 20:14 Reassessment: Patient appears in no apparent distress at this time. Patient is alert, aa1 oriented x 3, equal unlabored respirations, skin warm/dry/pink. Pt admitted to room 207 at this time. Vital Signs: 13:56 BP 117 / 68; Pulse 74; Resp 18; Temp 97.8; Pulse Ox 98% on R/A; Weight 103.87 kg; Pain ph 7/10; 15:15 BP 119 / 65; Pulse 58; Resp 18; Pulse Ox 98% on R/A; ph 16:30 BP 118 / 64; Pulse 51; Resp 16; Pulse Ox 99% on R/A; ph 17:37 BP 122 / 66; Pulse 48; Resp 18; Pulse Ox 100% on R/A; ph 18:30 BP 117 / 68; Pulse 51; Resp 18; Pulse Ox 99% on R/A; ph 19:45 BP 107 / 62; Pulse 70; Resp 18; Temp 97.9; Pulse Ox 98% on R/A; Pain 0/10; aa1 ED Course: 13:50 Patient arrived in ED. ph 13:55 Triage completed. ph 14:01 Arm band placed on Patient placed in an exam room, on a stretcher, on pulse oximetry. ph 14:01 Patient has correct armband on for positive identification. Bed in low position. Call ph light in reach. Side rails up X2. Pulse ox on. NIBP on. Door closed. Noise minimized. Warm blanket given. 14:16 Drake Banegas MD is Attending Physician. rn 15:02 Xochitl Mckinley, NORMA is Primary Nurse. ph 15:21 Osvaldo Amaya MD is Hospitalizing Provider. rn 15:25 Initial lab(s) drawn, by co, sent to lab. First set of blood cultures drawn by me. ph 15:34 Inserted saline lock: 20 gauge in left antecubital area, using aseptic technique. Blood ph collected. 15:37 No provider procedures requiring assistance completed. Patient admitted, IV remains in ph place. Administered Medications: 16:00 Drug: Rocephin - (cefTRIAXone) 1 grams Route: IVPB; Infused Over: 30 mins; Site: left ph antecubital; 16:15 Follow up: Response: No adverse reaction; IV Status: Completed infusion ph 19:00 Drug: vancoMYCIN 15 mg/kg Route: IVPB; Site: left antecubital; ph 19:37 Follow up: Response: No adverse reaction; IV Status: Infusion continued upon admission ph Outcome: 15:22 Decision to Hospitalize by Provider. rn 19:51 Admitted to Med/surg accompanied by tech, via stretcher, room 207, with chart, Report ph called to NORMA Gutierres 19:51 Condition: stable 20:17 Patient left the ED. bb Signatures: Mara Lim RN RN aa1 Ceci Johnson RN RN bb Drake Banegas MD MD rn Hall, Patricia, RN RN ph
--- NOTE | 2018-10-13 15:22 | EDPHYS ---
Physician Documentation [facility] Name: Kiko Root Age: 78 yrs Sex: Male : 1940 Arrival Date: 10/13/2018 Time: 13:50 Bed 16 Private MD: ED Physician Drake Banegas HPI: 10/13 15:18 This 78 yrs old Male presents to ER via EMS with complaints of UTI. rn 15:18 The patient presents with UTI. Onset: The symptoms/episode began/occurred at an unknown rn time. Severity of symptoms: At their worst the symptoms were mild, in the emergency department the symptoms are unchanged. The patient has experienced a previous episode. REports Dr. Lopez sent him in for PICC line, told has 3 different "bugs in bladder", otherwise feels ok, no fever. Has suprapubic cath for years 2/2 paraplegia. . Historical: - Allergies: 14:01 No Known Allergies; ph - Home Meds: 14:01 gabapentin 300 mg Oral cap 1 cap nightly [Active]; metformin 500 mg Oral tab 1 tab 2 ph times per day for Type 2 Diabetes Mellitus [Active]; tizanidine 2 mg oral cap 1 caps twice a day [Active]; levothyroxine 175 mcg oral tab [Active]; meloxicam 7.5 mg oral tab 1 tab once daily [Active]; trazodone 50 mg Oral tab 1 tab daily [Active]; - PMHx: 14:01 Anxiety; Chronic pain; Depression; Diabetes - NIDDM; Hypothyroidism; Hypertension; ph paraplegic; - PSHx: 14:01 Neck; Back; ph - Immunization history:: Adult Immunizations unknown. - Social history:: Smoking status: Patient uses tobacco products, smokes one-half pack cigarettes per day. - Ebola Screening: : No symptoms or risks identified at this time. - Family history:: not pertinent. - Hospitalizations: : No recent hospitalization is reported. ROS: 15:18 Constitutional: Negative for fever, chills, and weight loss, Eyes: Negative for injury, rn pain, redness, and discharge, Neck: Negative for injury, pain, and swelling, Cardiovascular: Negative for chest pain, palpitations, and edema, Respiratory: Negative for shortness of breath, cough, wheezing, and pleuritic chest pain, Abdomen/GI: Negative for abdominal pain, nausea, vomiting, diarrhea, and constipation, MS/Extremity: Negative for injury and deformity, Skin: Negative for injury, rash, and discoloration, Neuro: Negative for headache, weakness, numbness, tingling, and seizure. Exam: 15:18 Constitutional: This is a well developed, well nourished patient who is awake, alert, rn and in no acute distress. Head/Face: Normocephalic, atraumatic. ENT: MMM Cardiovascular: Regular rate and rhythm. No pulse deficits. Respiratory: Lungs have equal breath sounds bilaterally, clear to auscultation. No increased work of breathing, no retractions or nasal flaring. Abdomen/GI: soft, non-tender. Crusty suprapubic cath with mild erythema surrounding stoma. MS/ Extremity: Pulses equal, no cyanosis. Neuro: Awake and alert, GCS 15 Vital Signs: 13:56 BP 117 / 68; Pulse 74; Resp 18; Temp 97.8; Pulse Ox 98% on R/A; Weight 103.87 kg; Pain ph 7/10; 15:15 BP 119 / 65; Pulse 58; Resp 18; Pulse Ox 98% on R/A; ph 16:30 BP 118 / 64; Pulse 51; Resp 16; Pulse Ox 99% on R/A; ph 17:37 BP 122 / 66; Pulse 48; Resp 18; Pulse Ox 100% on R/A; ph 18:30 BP 117 / 68; Pulse 51; Resp 18; Pulse Ox 99% on R/A; ph 19:45 BP 107 / 62; Pulse 70; Resp 18; Temp 97.9; Pulse Ox 98% on R/A; Pain 0/10; aa1 MDM: 14:16 Patient medically screened. rn 15:18 Differential diagnosis: UTI. Data reviewed: vital signs, nurses notes, old medical rn records, lab test result(s), and as a result, I will admit patient. Counseling: I had a detailed discussion with the patient and/or guardian regarding: the historical points, exam findings, and any diagnostic results supporting the discharge/admit diagnosis, lab results, the need for further work-up and treatment in the hospital. Admission orders: after a detailed discussion of the patient's condition and case, the admit orders are written by me. ED course: Unable to get PICC line in ER, admitted to Dr. Amaya for initiation of PICC and IV abx for complicated UTI. . 10/13 14:37 Order name: CBC with Diff; Complete Time: 16:39 rn 10/13 14:37 Order name: Basic Metabolic Panel; Complete Time: 16:39 rn 10/13 14:37 Order name: Blood Culture Adult (2) rn 10/13 14:37 Order name: Urine Culture rn 10/13 14:37 Order name: Urine Microscopic Only; Complete Time: 16:39 rn 10/13 14:37 Order name: IV Start; Complete Time: 15:38 rn 10/13 18:04 Order name: Diet Ada 1800 Sha; Complete Time: 18:04 ph Administered Medications: 16:00 Drug: Rocephin - (cefTRIAXone) 1 grams Route: IVPB; Infused Over: 30 mins; Site: left ph antecubital; 16:15 Follow up: Response: No adverse reaction; IV Status: Completed infusion ph 19:00 Drug: vancoMYCIN 15 mg/kg Route: IVPB; Site: left antecubital; ph 19:37 Follow up: Response: No adverse reaction; IV Status: Infusion continued upon admission ph Disposition: 10/13/18 15:22 Hospitalization ordered by Osvaldo Amaya for Observation. Preliminary diagnosis is Urinary tract infection, site not specified. - Bed requested for Telemetry/MedSurg (observation). - Status is Observation. bb - Condition is Stable. - Problem is new. - Symptoms are unchanged. UTI on Admission? Yes Signatures: Dispatcher [employer] EDMS Licha Sutherland Brenda, RN RN bb Drake Banegas MD MD rn Hall, Patricia, RN RN ph Corrections: (The following items were deleted from the chart) 18:00 15:22 Hospitalization Ordered by Osvaldo Amaya MD for Observation. Preliminary diagnosis bd is Urinary tract infection, site not specified. Bed requested for Telemetry/MedSurg (observation). Status is Observation. Condition is Stable. Problem is new. Symptoms are unchanged. UTI on Admission? Yes. rn 20:17 18:00 10/13/2018 15:22 Hospitalization Ordered by Osvaldo Amaya MD for Observation. bb Preliminary diagnosis is Urinary tract infection, site not specified. Bed requested for Telemetry/MedSurg (observation). Status is Observation. Condition is Stable. Problem is new. Symptoms are unchanged. UTI on Admission? Yes. bd
[2018-10-13 15:45] LABS: Absolute Lymphocytes (CBC) 2.6 K/uL (0.7-4.9); Absolute Monocytes 0.5 K/uL (0.1-1.3); Absolute Neutrophil 4.6 K/uL (1.8-8.0); Basophils % 1.1 % (0-1.3); Eosinophils % 2.7 % (0-4.4); Hematocrit 44.4 % (39.6-49.0); Lymphocytes % 32.5 % (15.3-44.8); MPV 9.1 fL (7.6-11.3); Monocytes % 6.5 % (3.3-12.3); RBC Red Blood Cell Count 5.21 M/uL (4.33-5.43)
[2018-10-13 15:54] LABS: Urine Bacteria 20-50 /HPF (NONE SEEN); Urine Culture Reflex Order REFLEXED; Urine RBC <5 /HPF (NONE SEEN)
[2018-10-13] MEDS ORDERED: CEFTRIAXONE/SWI 1gm 1 GM/10 ML SYR ONE (16:05)
[2018-10-13 16:10] LABS: BUN Blood Urea Nitrogen 18 mg/dL (7-18); Bicarbonate 27 mmol/L (21-32); Glucose Level 122 mg/dL (74-106); Potassium 4.9 mmol/L (3.5-5.1); Sodium Level 137 mmol/L (136-145)
[2018-10-13] MEDS ORDERED: VANCOMYCIN 1.5 GM in NA CHLORIDE 0.9% 500 ML IVPB ONE (16:11)
--- NOTE | 2018-10-13 19:16 | P.HP ---
Patient History Date of Service: 10/13/18 History of Present Illness: 77-year-old male with significant past medical history of her office of bilateral lower extremities secondary to spinal cord injury in 2007, diabetes, hypertension, hyperlipidemia, chronic pain syndrome, chronic indwelling suprapubic catheter who presented to the ED from the urologist office for urinary tract infection which was positive for MRSA, pseudomonal and has a history of ESBL UTI. Patient has been having worsening of his symptoms and thus was sent over to the ER for IV antibiotics for his resistant bacteria. Patient has had made several attempts to arrange for outpatient IV therapy previously, however due to patient's financial condition along with patient's worsening symptoms patient has unable to do so and thus require hospital admission at this time. Allergies No Known Allergies Allergy (Verified 10/19/14 11:05) Home Medications: Gabapentin [Neurontin*] 300 mg PO BEDTIME 12/31/17 Levothyroxine Sodium [Synthroid] 1 tab PO DAILY 12/31/17 Metformin ER [Glucophage ER*] 1 tab PO BID 12/31/17 Meropenem [Merrem 1 GM/100 ML NS IVPB] 1 gm IV BID #28 bag 01/02/18 - Past Medical/Surgical History Diabetic: Yes -: Spinal Cord Injury 2007 -: Paralysis in legs bilateral -: Diabetes -: Lower Extremity Edema -: Chronic Pain -: Hypothyroidism -: Anxiety -: Depression -: hypertension -: paraplegia -: Spinal Surgery 2007 -: Back surgery -: Skin Grafts -: Suprapubic cath placement -: Circumcision - Family History Mother -: Cancer Brother -: Other (see notes) Notes: Arthritis Sister -: Other (see notes) Notes: Lupus - Social History Alcohol use: No CD- Drugs: No Caffeine use: Yes Review of Systems 10-point ROS is otherwise unremarkable Physical Examination - Physical Exam General: Alert, In no apparent distress, Oriented x3 HEENT: Atraumatic, PERRLA, Mucous membr. moist/pink, EOMI, Sclerae nonicteric Neck: Supple, 2+ carotid pulse no bruit, No LAD, Without JVD or thyroid abnormality Respiratory: Clear to auscultation bilaterally, Normal air movement Cardiovascular: Regular rate/rhythm, Normal S1 S2 Gastrointestinal: Normal bowel sounds, No tenderness Musculoskeletal: No tenderness Integumentary: No rashes Neurological: Normal gait, Normal speech, Normal strength at 5/5 x4 extr, Normal tone, Normal affect Lymphatics: No axilla or inguinal lymphadenopathy Assessment and Plan - Problems (Diagnosis) (1) UTI (urinary tract infection) Onset Date: 10/13/18 Current Visit: Yes Status: Acute Plan: Patient with urinary tract infection positive for Enterobacter Cloacae, Providencia stuartii, and MRSA. Patient is currently homebound due to paralysis of lower extremity due to spinal cord injury since 2007. Patient does not have the means for transportation neither does have the appropriate tools to help with his suprapubic catheter care along with payment for antibiotics. Patient brought over to the hospital for worsening of his symptoms and for further care. Unable to set up outpatient IV antibiotics due to patient's condition. -IV meropenem b.i.d. 1 g for a total 14 day -IV levaquin daily for 14 days -urology consulted, awaiting recommendations. -patient will need a PICC line placed for long-term acute care placement for IV antibiotics Qualifiers: Urinary tract infection type: site unspecified Hematuria presence: without hematuria Qualified Code(s): N39.0 - Urinary tract infection, site not specified (2) Diabetes mellitus, type II Onset Date: 01/01/18 Current Visit: No Status: Chronic Qualifiers: Diabetes mellitus terminal superintendent insulin use: without alf use Diabetes mellitus complication status: without complication Qualified Code(s): E11.9 - Type 2 diabetes mellitus without complications (3) HTN (hypertension) Onset Date: 01/01/18 Current Visit: No Status: Chronic Qualifiers: Hypertension type: essential hypertension (4) Hypothyroidism Onset Date: 01/01/18 Current Visit: No Status: Chronic Qualifiers: Hypothyroidism type: acquired Qualified Code(s): E03.9 - Hypothyroidism, unspecified (5) Indwelling catheter present on admission Onset Date: 05/08/16 Current Visit: No Status: Chronic (6) Paraplegia following spinal cord injury Onset Date: 01/01/18 Current Visit: No Status: Chronic - Plan DVT prophylaxis: Lovenox GI prophylaxis: None Diet: Heart healthy Disposition: Admit to floor, pending PICC line placement and urology recommendations. Social work consulted for IV antibiotics set up at home. - Advance Directives Does patient have a Living Will: No Does patient have a Durable POA for Healthcare: Yes
[2018-10-13] MEDS ORDERED: VANCOMYCIN 1.5 GM in NA CHLORIDE 0.9% 500 ML IVPB SCH (21:00)
[2018-10-13 21:20] LABS: Urine Appearance CLOUDY; Urine Bilirubin NEGATIVE (NEG); Urine Blood 1+ (NEG); Urine Color YELLOW; Urine Glucose TRACE (NEG); Urine Protein TRACE (NEG); Urine Specific Gravity >=1.030 (1.005-1.030)
[2018-10-13 21:26] LABS: Urine Microscopic Reflex ORDER UMIC
[2018-10-13 21:46] VITALS: BMI 32.8
[2018-10-13 21:47] LABS: Urine Bacteria 20-50 /HPF (NONE SEEN); Urine Culture Reflex Order REFLEXED; Urine RBC <5 /HPF (NONE SEEN)
[2018-10-13] MEDS: Meropenem 1000 MG/VIAL IV SCH (23:00)
[2018-10-14] MEDS ORDERED: Meropenem 1 GM/100 ML BAG ONE ×2 (00:04→05:13)
[2018-10-14] MEDS ORDERED: Meropenem 1000 MG/VIAL IV SCH (01:00)
[2018-10-14] MEDS ORDERED: VANCOMYCIN 1 GM/VIAL ONE (05:17)
[2018-10-14] MEDS ORDERED: NA CHLORIDE 0.9% 250 ML ONE ×2 (05:25→07:05)
[2018-10-14] MEDS: Meropenem 1000 MG/VIAL IV SCH (06:00)
[2018-10-14 06:18] LABS: ALT/SGPT 20 U/L (12-78); AST/SGOT 11 U/L (15-37); Albumin 3.1 g/dL (3.4-5.0); Alkaline Phosphatase 100 U/L (45-117); BUN Blood Urea Nitrogen 20 mg/dL (7-18); Bicarbonate 26 mmol/L (21-32); Bilirubin Total 0.6 mg/dL (0.2-1.0); Glucose Level 110 mg/dL (74-106); Phosphorus 2.8 mg/dL (2.5-4.9); Protein, Total 7.6 g/dL (6.4-8.2); Sodium Level 139 mmol/L (136-145)
[2018-10-14] MEDS ORDERED: VANCOMYCIN 1.5 GM in NA CHLORIDE 0.9% 500 ML IVPB SCH (07:00)
[2018-10-14] MEDS ORDERED: VANCOMYCIN/NS 1 gm 1 GM/250 ML BAG IV ONE (08:00)
[2018-10-14] MEDS ORDERED: TIZANIDINE HCL 2 MG PO PRN (15:04)
[2018-10-14] MEDS ORDERED: TIZANIDINE 4 MG TABLET PO PRN (15:09)
--- NOTE | 2018-10-14 15:51 | RAD REPORT ---
EXAM DESCRIPTION: RAD - Chest Single View - 10/14/2018 3:32 pm CLINICAL HISTORY: PICC line placement COMPARISON: January 01, 2018 FINDINGS: Portable chest was obtained following placement of a left upper extremity PICC line. The c atheter tip is in the mid SVC.
[2018-10-14] MEDS: Meropenem 1,000 MG in NA CHLORIDE 0.9% 100 ML IV SCH (16:47)
--- NOTE | 2018-10-14 18:01 | CON ---
History Of Present Illness: Pleasant 78-year-old gentleman with history of bilateral lower extremity secondary to spinal cord injury in 2007, history of diabetes, hypertension, hyperlipidemia, chronic pain syndrome, chronic indwelling suprapubic catheter for urinary retention and neurogenic bladder, h is urine was positive for MRSA and Enterobacter and Providencia. Apparently had similar ESBL infecti on about a month ago and was at home for this problem. Moreover, he said he has been having fevers l ately, so he was brought in for IV antibiotics. Allergies: NO KNOWN DRUG ALLERGIES. Home Medications: Neurontin, Synthroid, Glucophage, meropenem. Past Medical History: Spinal cord injury 2008, paralysis in both legs bilaterally, diabetes, lower e xtremity edema, chronic pain, hypothyroidism, anxiety, depression, hypertension, paraplegia, back mansi rosmery, skin rash of the chest, circumcision. Family History: Mother had cancer. Brother has arthritis. Sister has lupus. Social History: No drinking or drugs. Some caffeine use. Review of Systems: Ten-point review of systems otherwise unremarkable. Physical Examination: Vital SIGNS: Afebrile, stable. HEENT: Atraumatic and normocephalic. Neck: Supple. Respiratory: Clear. Cardiovascular: S1, S2. Gastrointestinal: Normal bowel sounds. Nontender. Musculoskeletal: No tenderness. Skin: No rashes. Neurologic: Normal gait, normal speech. Lymphatics: No axillary lymphadenopathy. Assessment: Multiple urinary tract infection, methicillin-resistant Staphylococcus aureus and ESBL, Enterobacter cloacae, Providencia stuartii. The patient got meropenem for both the Enterobacter and Providencia and IV Levaquin for the MRSA and he says he has 7 days of IV antibiotics at home, which m ost likely we can utilize also. Thank you very much. DIANE/LAZARO Voice ID: [id number] Report ID: [id number]
--- NOTE | 2018-10-14 19:55 | PN ---
Date of Progress Note: 10/14/2018 Code Status: Full. Medications: List reviewed. Subjective: The patient is seen and examined. Chart reviewed and case discussed with RN. Son at e bedside. Case also discussed with Dr. Lopez. The patient apparently has been stating that he has IV antibiotics setup at home; however, this was back in 2018 when he had IV antibiotics at home. Soc ial Work confirmed with [facility] as well as Dr. Lopez's office. There is no IV antibiotics se tup at home at this time. The patient unable to have a PICC line placed yesterday and we will re-att empt today. Objective: Vital Signs: Temperature 97.6, heart rate 68, blood pressure 122/73, respirations 20, O2 91% on room air. General: Awake, alert, oriented x3. Elderly male, obese, not in any acute distress. CV: S1, S2. Regular rate and rhythm. Peripheral pulses present. Respiratory: Moving air well bilaterally. No wheezing or stridor. No use of accessory muscles. Gastrointestinal: Abdomen is soft, nontender, nondistended. Positive bowel sounds. Extremities: No clubbing, cyanosis, or edema. Neuro: The patient is paraplegic. Skin: Suprapubic catheter in place. Laboratory Data: Sodium 139, potassium 4, chloride 107, CO2 of 26, BUN 20, creatinine 0.81, glucose 110, calcium 8.8, magnesium 2.0, phosphorus is 2.8. Urine culture is growing out Staph coagulase pos itive and 4+ gram-negative rods. Previous culture from 10/09/2018 shows Enterobacter cloacae, Provid encia, and MRSA. Assessment And Plan: A 78-year-old male with: 1.Acute cystitis without hematuria secondary to Enterobacter, Providencia, MRSA. The patient homebo und due to lower extremity paralysis secondary to spinal cord injury for the past 11 years. He is un able to have transportation and does not have tools to help with suprapubic catheter care along with payments for antibiotics. The patient will need a total of 14 days of meropenem 1 g b.i.d. along wit h Levaquin daily for [address] Lopez has been consulted. He agrees with the antibiotic regimen a t this time. We will follow up on repeat cultures, currently growing coagulase positive Staph and 4+ gram-negative rods. PICC line to be placed today. 2.Diabetes mellitus type 2 without long-term use of insulin with hyperglycemia. We will continue sl iding scale insulin and monitor Accu-Cheks. 3.Essential hypertension. We will resume home medications as appropriate. 4.Hypothyroidism. Continue Synthroid. 5.Paraplegia, following spinal cord injury. 6.Suprapubic catheter, present on admission. 7.Deep venous thrombosis prophylaxis with Lovenox. 8.Obesity, body mass index 32.9. Plan: PICC line placement. We will discuss further with Social Work for IV antibiotics to be set up at home versus intermediate facility. /LAZARO Voice ID: [id number] Report ID: [id number]
[2018-10-14] MEDS ORDERED: GABAPENTIN 300 MG CAP PO SCH (21:00)
[2018-10-14] MEDS: VANCOMYCIN 1.75 GM in NA CHLORIDE 0.9% 500 ML IVPB SCH (21:31)
[2018-10-15] MEDS: Meropenem 1,000 MG in NA CHLORIDE 0.9% 100 ML IV SCH ×2 (00:48→08:24)
[2018-10-15] MEDS ORDERED: LEVOTHYROXINE SOD 0.1 MG TAB PO SCH (06:30)
[2018-10-15] MEDS ORDERED: LEVOTHYROXINE SOD 0.075 MG TAB PO SCH (06:30)
[2018-10-15 06:34] LABS: Absolute Lymphocytes (CBC) 1.8 K/uL (0.7-4.9); Absolute Monocytes 0.6 K/uL (0.1-1.3); Absolute Neutrophil 5.3 K/uL (1.8-8.0); Basophils % 0.8 % (0-1.3); Eosinophils % 3.2 % (0-4.4); Hematocrit 42.1 % (39.6-49.0); Lymphocytes % 22.6 % (15.3-44.8); MPV 8.9 fL (7.6-11.3); RBC Red Blood Cell Count 4.92 M/uL (4.33-5.43)
[2018-10-15 06:59] LABS: ALT/SGPT 19 U/L (12-78); AST/SGOT 12 U/L (15-37); Alkaline Phosphatase 95 U/L (45-117); BUN Blood Urea Nitrogen 18 mg/dL (7-18); Bicarbonate 27 mmol/L (21-32); Bilirubin Total 0.8 mg/dL (0.2-1.0); Glucose Level 115 mg/dL (74-106); Protein, Total 7.6 g/dL (6.4-8.2); Sodium Level 137 mmol/L (136-145)
[2018-10-15] MEDS: VANCOMYCIN 1.75 GM in NA CHLORIDE 0.9% 500 ML IVPB SCH (08:00)
[2018-10-15] MEDS ORDERED: LEVOTHYROXINE SODIUM PO SCH (09:00)
[2018-10-15] MEDS ORDERED: TRAZODONE 50 MG TABLET PO SCH (09:00)
[2018-10-15 10:51] VITALS: O2SAT 96
[2018-10-15 12:42] VITALS: BP 109/56; TEMP 97.8
[2018-10-15] MEDS ORDERED: VANCOMYCIN 1.75 GM in NA CHLORIDE 0.9% 500 ML IVPB SCH (15:00)
--- NOTE | 2018-10-16 02:44 | DS ---
Date of Discharge: 10/15/2018 Lab Tech: Dr. Lopez with Urology. Procedures: None. Admitting Diagnoses: 1.Multi drug-resistant acute cystitis without hematuria. 2.Diabetes mellitus, type 2, without long-term use of insulin, without complications. 3.Essential hypertension. 4.Hypothyroidism. 5.Indwelling catheter, suprapubic. 6.Paraplegia following spinal cord injury. Discharge Diagnoses: 1.Acute cystitis without hematuria secondary to multi-drug resistant bacteria including Enterobacter cloacae, MRSA. The patient will need 2 weeks of meropenem and Levaquin. 2.Diabetes mellitus, type 2, without long-term use of insulin with hyperglycemia, stable. 3.Essential hypertension, stable. 4.Hypothyroidism, on Synthroid. 5.Paraplegia following spinal cord injury. 6.Suprapubic catheter present on admission. 7.Obesity, BMI 32.9. 8.History of spinal cord injury. Hospital Course: The patient is a 78-year-old male, who has a spinal cord injury, diabetes, has a ch ronic indwelling suprapubic catheter, came into the ER from urologist's office due to positive cultur es on previously urine cultures including MRSA, Pseudomonas. The patient does have history of multi- drug resistant UTI. The patient was started on broad-spectrum IV antibiotics with meropenem and vanc omycin. Cultures were re-obtained. His urine culture grew out Enterobacter and MRSA. Blood culture s were negative to date. The patient's culture sensitivities showed meropenem and Levaquin to be sen sitive. IV antibiotics were set up as an outpatient. The patient declined shelter facility placement. The patient was set up with home antibiotics and was then discharged in a stable conditio n. The patient was seen by Dr. Lopez, who agreed with the treatment course. Medications: As per medication reconciliation list. Followup: Follow up with primary care physician in 2-3 days. Follow up with urologist, Dr. Lopez, i n 2 weeks. Return to ER for worsening condition. Have urine culture repeated once antibiotics are c ompleted. The patient will need weekly CBC, CMP, ESR, and CRP, and to monitor kidney function and ad just dose as needed. Diet: Diabetic. Activity: Fall precautions. Physical Examination: General: Awake, alert, oriented x3. Elderly male, obese. CV: S1, S2. Respiratory: Moving air well bilaterally. Abdomen: Soft, nontender, nondistended. Positive bowel sounds. Extremities: No clubbing, cyanosis, or edema. Neuro: The patient is paraplegic. Skin: Suprapubic catheter in place. /LAZARO Voice ID: [id number] Report ID: [id number]
== END 2018-10-15 13:29 | disposition home health service (06) ==
LOC: ER 13:45 → ERHOLD 15:25 → 2ND 19:37
PROVIDERS: ADMIT Family Medicine; ATTEND Family Medicine
PROC: 02HV33Z Insertion of Infusion Device into Superior Vena Cava, Percutaneous Approach (ICD-10-PCS; principal; 2018-10-14)
DX: N39.0 Urinary tract infection, site not specified (principal); B95.62 Methicillin resistant Staphylococcus aureus infection as the cause of diseases classified elsewhere; B96.89 Other specified bacterial agents as the cause of diseases classified elsewhere; Z16.11 Resistance to penicillins; Z16.24 Resistance to multiple antibiotics; E03.9 Hypothyroidism, unspecified; E11.65 Type 2 diabetes mellitus with hyperglycemia; E78.5 Hyperlipidemia, unspecified; G82.20 Paraplegia, unspecified; T14.8XXS Other injury of unspecified body region, sequela; G89.4 Chronic pain syndrome; I10 Essential (primary) hypertension; Z93.59 Other cystostomy status; Z79.84 Long term (current) use of oral hypoglycemic drugs; Z79.1 Long term (current) use of non-steroidal anti-inflammatories (NSAID); Z79.899 Other long term (current) drug therapy; E66.9 Obesity, unspecified; Z68.32 Body mass index [BMI] 32.0-32.9, adult
CPT/HCPCS: 36569; 96365 ×5; 96367 ×3; 87040 ×2; 87088; 85025 ×2; 87086; 80048; 36415 ×2; 83735; 84100; 82962 ×7; 87077 ×3; 87186 ×3; 80202; 80053 ×2; 71045; 96375; 99285; J0696; J2185 ×2; G0378 ×2; 81003; 81015; J3370

== ENCOUNTER 2018-10-17 12:49 | Emergency (ER) | payer OTHER ==
--- NOTE | 2018-10-17 14:11 | EDPHYS ---
Physician Documentation [facility] Name: Kiko Root Age: 78 yrs Sex: Male : 1940 Arrival Date: 10/17/2018 Time: 13:03 Bed 24 Private MD: ED Physician Kike Schrader HPI: 10/17 14:07 This 78 yrs old Male presents to ER via EMS with complaints of PICC line jr8 malfunction. 14:07 Patient sent to ED because PICC line was not flushing properly . Onset: The jr8 symptoms/episode began/occurred acutely, today. Severity of symptoms: At their worst the symptoms were mild. It is unknown whether or not the patient has had similar symptoms in the past. The patient has not recently seen a physician. Historical: - Allergies: 13:07 No Known Allergies; ls4 - PMHx: 13:07 Anxiety; Chronic pain; Depression; Diabetes - NIDDM; Hypertension; Hypothyroidism; ls4 paraplegic; - PSHx: 13:07 Neck; ls4 - Immunization history:: Adult Immunizations up to date. - Social history:: Smoking status: Patient/guardian denies using tobacco. - Ebola Screening: : Patient negative for fever greater than or equal to 101.5 degrees Fahrenheit, and additional compatible Ebola Virus Disease symptoms Patient denies exposure to infectious person Patient denies travel to an Ebola-affected area in the 21 days before illness onset No symptoms or risks identified at this time. ROS: 14:07 Eyes: Negative for injury, pain, redness, and discharge, ENT: Negative for injury, jr8 pain, and discharge, Neck: Negative for injury, pain, and swelling, Cardiovascular: Negative for chest pain, palpitations, and edema, Respiratory: Negative for shortness of breath, cough, wheezing, and pleuritic chest pain, Abdomen/GI: Negative for abdominal pain, nausea, vomiting, diarrhea, and constipation, Back: Negative for injury and pain, MS/Extremity: Negative for injury and deformity, Skin: Negative for injury, rash, and discoloration, Neuro: Negative for headache, weakness, numbness, tingling, and seizure. Exam: 14:07 Eyes: Pupils equal round and reactive to light, extra-ocular motions intact. Lids and jr8 lashes normal. Conjunctiva and sclera are non-icteric and not injected. Cornea within normal limits. Periorbital areas with no swelling, redness, or edema. ENT: Nares patent. No nasal discharge, no septal abnormalities noted. Tympanic membranes are normal and external auditory canals are clear. Oropharynx with no redness, swelling, or masses, exudates, or evidence of obstruction, uvula midline. Mucous membranes moist. Neck: Trachea midline, no thyromegaly or masses palpated, and no cervical lymphadenopathy. Supple, full range of motion without nuchal rigidity, or vertebral point tenderness. No Meningismus. Cardiovascular: Regular rate and rhythm with a normal S1 and S2. No gallops, murmurs, or rubs. Normal PMI, no JVD. No pulse deficits. Respiratory: Lungs have equal breath sounds bilaterally, clear to auscultation and percussion. No rales, rhonchi or wheezes noted. No increased work of breathing, no retractions or nasal flaring. Abdomen/GI: Soft, non-tender, with normal bowel sounds. No distension or tympany. No guarding or rebound. No evidence of tenderness throughout. Back: No spinal tenderness. No costovertebral tenderness. Full range of motion. Skin: Warm, dry with normal turgor. Normal color with no rashes, no lesions, and no evidence of cellulitis. MS/ Extremity: Pulses equal, no cyanosis. Neurovascular intact. Full, normal range of motion. PICC line to left medial brachial region. In place with no surrounding bleeding or erythema Neuro: Awake and alert, GCS 15, oriented to person, place, time, and situation. Cranial nerves II-XII grossly intact. Motor strength 5/5 in all extremities. Sensory grossly intact. Cerebellar exam normal. Normal gait. Vital Signs: 13:07 BP 122 / 64; Pulse 63; Resp 16; Temp 98.6; Pulse Ox 99% on R/A; Weight 105.23 kg; Pain ls4 0/10; 14:00 BP 133 / 84; Pulse 62; Resp 16; Pulse Ox 99% on R/A; Pain 0/10; ls4 15:12 BP 137 / 87; Pulse 62; Resp 16; Temp 98.4(O); Pulse Ox 99% on R/A; Pain 0/10; ls4 MDM: 13:13 Patient medically screened. [facility] 14:07 Data reviewed: vital signs, nurses notes, and as a result, I will discharge patient. jr8 Data interpreted: Pulse oximetry: on room air is 99 %. Interpretation: normal. Counseling: I had a detailed discussion with the patient and/or guardian regarding: the historical points, exam findings, and any diagnostic results supporting the discharge/admit diagnosis, the need for outpatient follow up, a family practitioner, to return to the emergency department if symptoms worsen or persist or if there are any questions or concerns that arise at home. ED course: Able to draw and flush after removing the caps. Appears caps had malfunction. Replaced caps and now working properly . Administered Medications: No medications were administered Disposition: 10/17/18 14:09 Discharged to Home. Impression: Encounter for PICC line malfunction . - Condition is Stable. - Discharge Instructions: PICC Home Guide. - Medication Reconciliation Form, Thank You Letter, Antibiotic Education, Prescription Opioid Use form. - Follow up: Private Physician; When: As needed; Reason: Recheck today's complaints, Continuance of care, Re-evaluation by your physician. - Problem is new. - Symptoms have improved. Addendum: 10/18/2018 16:38 Co-signature as Attending Physician, Kike Schrader MD. g s Signatures: Malvin Katz PA PA jr8 Kike Schrader MD MD Karmen Gomes RN RN ls4 Corrections: (The following items were deleted from the chart) 10/17 15:14 14:09 10/17/2018 14:09 Discharged to Home. Impression: Encounter for PICC line ls4 malfunction . Condition is Stable. Forms are Medication Reconciliation Form, Thank You Letter, Antibiotic Education, Prescription Opioid Use. Follow up: Private Physician; When: As needed; Reason: Recheck today's complaints, Continuance of care, Re-evaluation by your physician. Problem is new. Symptoms have improved. jr8
--- NOTE | 2018-10-17 14:11 | ER ---
Nurse's Notes [facility] Name: Kiko Root Age: 78 yrs Sex: Male : 1940 Arrival Date: 10/17/2018 Time: 13:03 Bed 24 Private MD: Diagnosis: Encounter for PICC line malfunction Presentation: 10/17 13:04 Presenting complaint: EMS states: PICC line is not flushing. Sent for PICC flush. ls4 Transition of care: patient was not received from another setting of care. Onset of symptoms was October 17, 2018. Risk Assessment: Do you want to hurt yourself or someone else? Patient reports no desire to harm self or others. Initial Sepsis Screen: Does the patient meet any 2 criteria? No. Patient's initial sepsis screen is negative. Does the patient have a suspected source of infection? Yes: Dysuria/Frequency/Urgency/UTI. Care prior to arrival: None. 13:04 Method Of Arrival: EMS: [facility] ls4 13:04 Acuity: KRUPA 4 ls4 Triage Assessment: 13:07 General: Appears in no apparent distress. Behavior is calm, cooperative. Pain: Denies ls4 pain. Historical: - Allergies: 13:07 No Known Allergies; ls4 - PMHx: 13:07 Anxiety; Chronic pain; Depression; Diabetes - NIDDM; Hypertension; Hypothyroidism; ls4 paraplegic; - PSHx: 13:07 Neck; ls4 - Immunization history:: Adult Immunizations up to date. - Social history:: Smoking status: Patient/guardian denies using tobacco. - Ebola Screening: : Patient negative for fever greater than or equal to 101.5 degrees Fahrenheit, and additional compatible Ebola Virus Disease symptoms Patient denies exposure to infectious person Patient denies travel to an Ebola-affected area in the 21 days before illness onset No symptoms or risks identified at this time. Screenin:41 Abuse screen: Denies threats or abuse. Denies injuries from another. Nutritional ls4 screening: No deficits noted. Tuberculosis screening: No symptoms or risk factors identified. Fall Risk No fall in past 12 months (0 pts). Secondary diagnosis (15 points) impaired mobility, IV access (20 points). Ambulatory Aid- None/Bed Rest/Nurse Assist (0 pts). Gait- Normal/Bed Rest/Wheelchair (0 pts) Mental Status- Oriented to own ability (0 pts). Total Romreo Fall Scale indicates Low Risk Score (25-44 pts). Fall prevention measures have been instituted. Side Rails Up X 2 Placed close to Nursing Station Frequent Obs/Assesments occuring As available Patient and Family Educated on Fall Prevention Program and strategies. Assessment: 13:09 General: Appears in no apparent distress. ls4 Vital Signs: 13:07 BP 122 / 64; Pulse 63; Resp 16; Temp 98.6; Pulse Ox 99% on R/A; Weight 105.23 kg; Pain ls4 0/10; 14:00 BP 133 / 84; Pulse 62; Resp 16; Pulse Ox 99% on R/A; Pain 0/10; ls4 15:12 BP 137 / 87; Pulse 62; Resp 16; Temp 98.4(O); Pulse Ox 99% on R/A; Pain 0/10; ls4 ED Course: 13:03 Patient arrived in ED. ls4 13:05 Triage completed. ls4 13:08 Arm band placed on left wrist. ls4 13:08 Patient has correct armband on for positive identification. Bed in low position. Call ls4 light in reach. Side rails up X 1. 13:08 Pulse ox on. Verbal reassurance given. ls4 13:13 [facility] jr8 13:13 Kike Schrader MD is Attending Physician. jr8 14:01 Grazyna Singh RN is Primary Nurse. iw 14:01 Accessed PICC line. using ,sterile technique, per hospital protocol. Clean \T\ dry. Good iw blood return. Flushes easily. caps were changed and PICC line now flushes easily with good blood return. 14:41 No provider procedures requiring assistance completed. ls4 14:43 Patient did not have IV access during this emergency room visit. ls4 Administered Medications: No medications were administered Outcome: 14:09 Discharge ordered by . jr8 15:13 Discharged to home via ambulance. ls4 15:13 Condition: stable 15:13 Discharge instructions given to patient, Instructed on discharge instructions, follow up and referral plans. Demonstrated understanding of instructions, follow-up care, medications. 15:14 Patient left the ED. ls4 Signatures: Grazyna Singh RN RN Malvin Katz PA PA jr8 Karmen Gomes, RN RN ls4
[2018-10-17 15:50] VITALS: O2SAT 99
[2018-10-17 15:53] VITALS: BP 137/87; TEMP 98.4
== END 2018-10-17 15:14 | disposition home or self-care (01) ==
LOC: ER 12:49
DX: T85.618A Breakdown (mechanical) of other specified internal prosthetic devices, implants and grafts, initial encounter (principal); I10 Essential (primary) hypertension
CPT/HCPCS: 99284

== ENCOUNTER 2022-05-14 17:08 | Emergency (ER) | payer OTHER ==
--- NOTE | 2022-05-14 18:06 | EDPHYS ---
Physician Documentation [facility] Name: Kiko Root Age: 81 yrs Sex: Male : 1940 Arrival Date: 05/14/2022 Time: 17:13 Bed 23 Private MD: ED Physician Ruel Infante HPI: 05/14 19:48 Onset: The symptoms/episode began/occurred acutely, 3 hour(s) ago. The symptoms do not jmm radiate. Associated signs and symptoms: Pertinent negatives: nausea and vomiting, fever, vomiting. The symptoms are described as. Modifying factors: The symptoms are alleviated by nothing, the symptoms are aggravated by nothing. This is a 81/m with a history of chronic pain, depression, dm, htn that presents to the ED after losing his suprapubic catheter approx 3 hours ago. . Historical: - Allergies: 17:14 No Known Allergies; iw - PMHx: 17:14 Anxiety; Chronic pain; Depression; Diabetes - NIDDM; Hypertension; Hypothyroidism; iw paraplegic; ROS: 19:48 Constitutional: Negative for fever, chills, and weight loss, Cardiovascular: Negative jm for chest pain, palpitations, and edema, Respiratory: Negative for shortness of breath, cough, wheezing, and pleuritic chest pain. 19:48 All other systems are negative. Exam: 19:48 Constitutional: This is a well developed, well nourished patient who is awake, alert, jmm and in no acute distress. Head/Face: atraumatic. Eyes: EOMI, no conjunctival erythema appreciated ENT: Moist Mucus Membranes Neck: Trachea midline, Supple Chest/axilla: Normal chest wall appearance and motion. Cardiovascular: Regular rate and rhythm. No edema appreciated Respiratory: Normal respirations, no respiratory distress appreciated 19:48 Abdomen/GI: Abdomen is soft. . Vital Signs: 18:51 BP 133 / 58; Pulse 64; Resp 16; Temp 98.0; Pulse Ox 97% on R/A; iw 19:46 BP 132 / 92; Pulse 68; Resp 16; Pulse Ox 97% ; em6 MDM: 17:35 Patient medically screened. [facility] 18:03 Data reviewed: vital signs, nurses notes. Counseling: I had a detailed discussion with jm the patient and/or guardian regarding: the historical points, exam findings, and any diagnostic results supporting the discharge/admit diagnosis, the need for outpatient follow up, to return to the emergency department if symptoms worsen or persist or if there are any questions or concerns that arise at home. 19:48 ED course: Suprapubic catheter was inserted using sterile technique. Patient tolerated [facility] the procedure well. . 05/14 17:38 Order name: Umer; Complete Time: 17:40 jmm Administered Medications: No medications were administered Disposition: 18:09 Co-signature as Attending Physician, Ruel Infante DO I was immediately available onsite ms3 in the emergency department for consultation in the care of the patient. Disposition Summary: 05/14/22 18:05 Discharge Ordered Location: Home [facility] Condition: Stable [facility] Diagnosis - Suprapubic Catheter Change [facility] Followup: [facility] - With: Private Physician - When: 2 - 3 days - Reason: Recheck today's complaints, Continuance of care, Re-evaluation by your physician Discharge Instructions: - Discharge Summary Sheet [facility] - Suprapubic Catheter Replacement [facility] Forms: - Medication Reconciliation Form [facility] - Thank You Letter [facility] - Antibiotic Education [facility] - Prescription Opioid Use [facility] Signatures: Otf Fine PA PA jmm Williams, Irene, RN RN Ruel Armenta DO DO ms3
--- NOTE | 2022-05-14 18:06 | ER ---
Nurse's Notes [facility] Name: Kiko Root Age: 81 yrs Sex: Male : 1940 Arrival Date: 05/14/2022 Time: 17:13 Bed 23 Private MD: Diagnosis: Suprapubic Catheter Change Presentation: 05/14 17:14 Chief complaint: EMS states: suprapubic catheter dislodged about 3 hours. Coronavirus iw screen: At this time, the client does not indicate any symptoms associated with coronavirus-19. Ebola Screen: Patient negative for fever greater than or equal to 101.5 degrees Fahrenheit, and additional compatible Ebola Virus Disease symptoms Patient denies exposure to infectious person. Patient denies travel to an Ebola-affected area in the 21 days before illness onset. No symptoms or risks identified at this time. Initial Sepsis Screen: Does the patient meet any 2 criteria? No. Patient's initial sepsis screen is negative. Does the patient have a suspected source of infection? No. Patient's initial sepsis screen is negative. Risk Assessment: Do you want to hurt yourself or someone else? Patient reports no desire to harm self or others. Onset of symptoms was May 14, 2022. 17:14 Method Of Arrival: EMS: [facility] iw 17:14 Acuity: KRUPA 3 iw Historical: - Allergies: 17:14 No Known Allergies; iw - PMHx: 17:14 Anxiety; Chronic pain; Depression; Diabetes - NIDDM; Hypertension; Hypothyroidism; iw paraplegic; Screenin:51 Abuse screen: Denies threats or abuse. Denies injuries from another. Nutritional iw screening: No deficits noted. Tuberculosis screening: No symptoms or risk factors identified. Fall Risk Vital Signs: 18:51 BP 133 / 58; Pulse 64; Resp 16; Temp 98.0; Pulse Ox 97% on R/A; iw 19:46 BP 132 / 92; Pulse 68; Resp 16; Pulse Ox 97% ; em6 ED Course: 17:13 Patient arrived in ED. iw 17:14 Triage completed. iw 17:15 Arm band placed on. iw 17:18 Otf Fine PA is PHCP. jmm 17:18 Ruel Infante DO is Attending Physician. jmm 19:46 No provider procedures requiring assistance completed. Patient did not have IV access em6 during this emergency room visit. Administered Medications: No medications were administered Medication: 19:46 VIS not applicable for this client. em6 Outcome: 18:05 Discharge ordered by MD. guzman 19:47 Discharged to home by [facility] em6 19:47 Condition: stable 19:47 Discharge instructions given to patient, Instructed on discharge instructions, follow up and referral plans. 19:48 Patient left the ED. em6 Signatures: Otf Fine PA PA jmm Williams, Irene, RN RN Nicol Root RN RN em6
[2022-05-14 19:51] VITALS: TEMP 98; O2SAT 97
[2022-05-14 19:53] VITALS: BP 132/92
== END 2022-05-14 19:48 | disposition home or self-care (01) ==
LOC: ER 17:08
PROC: 0T2BX0Z Change Drainage Device in Bladder, External Approach (ICD-10-PCS; principal; 2022-05-14)
DX: T83.028A Displacement of other urinary catheter, initial encounter (principal)
CPT/HCPCS: 99283

== ENCOUNTER 2023-09-15 05:58 | Inpatient (IN) | payer OTHER ==
[2023-09-15 06:33] LABS: Absolute Lymphocytes (CBC) 0.5 K/uL (0.7-4.9); Absolute Monocytes 0.4 K/uL (0.1-1.3); Absolute Neutrophil 10.3 K/uL (1.8-8.0); Basophils % 0.3 % (0-1.3); Eosinophils % 0.2 % (0-4.4); Hematocrit 39.1 % (39.6-49.0); Hemoglobin 12.8 g/dL (13.6-17.9); Lymphocytes % 4.5 % (15.3-44.8); MCH 27.2 pg (27.0-35.0); MCHC 32.7 g/dL (32.0-36.0); MCV 83.2 fL (80-100); MPV 8.8 fL (7.6-11.3); Monocytes % 3.3 % (3.3-12.3); Neutrophils % 91.7 % (41.7-73.7); Platelets 258 thou/uL (152-406); Red Cell Distribution Width 15.6 % (12.1-15.2)
[2023-09-15 06:42] LABS: PT Prothrombin Time 13.7 SECONDS (9.5-12.5); PTT, Activated Partial Thromb 30.9 SECONDS (24.3-36.9); Protime INR 1.25
[2023-09-15] MEDS ORDERED: NA CHLORIDE 0.9% 500 ML ONE (06:43)
[2023-09-15] MEDS ORDERED: ACETAMINOPHEN 500 MG TAB ONE (06:43)
[2023-09-15] MEDS ORDERED: NA CHLORIDE 0.9% 2,000 ML ONE (06:43)
[2023-09-15] MEDS ORDERED: CEFTRIAXONE 1000 MG/VIAL ONE (06:43)
[2023-09-15 06:49] LABS: Albumin 2.9 g/dL (3.4-5.0); Albumin/Globulin Ratio 0.6 (1.1-1.8); Anion Gap 12.6 mEq/L (5.0-15.0); Bilirubin Total 0.8 mg/dL (0.2-1.0); Globulin 4.7 g/dL (2.3-3.5); Potassium 3.6 mEq/L (3.5-5.1); Protein, Total 7.6 g/dL (6.4-8.2)
[2023-09-15 08:23] LABS: Band Neutrophils 4 % (0-1); Blood Morphology Comment NOT SEEN (NOT SEEN); Differential Total Cells Count 100; Lymphocytes 7 % (15-42); Monocytes 3 % (0-10); Platelet Estimate ADEQ; Segmented Neutrophils 86 % (40-80); White Blood Cell Scan OK (OK)
[2023-09-15 08:24] LABS: Specific Gravity 1.019 (1.005-1.030); Sqamous Epithelial >50 /HPF (None Seen); Urine Bacteria >50 /HPF (<20); Urine Bilirubin NEGATIVE (Negative); Urine Blood 3+ (Negative); Urine Clarity Extremely Turbid (Clear); Urine Color Dark-Brown (Yellow); Urine Culture Reflex Order NOT NEEDED; Urine Glucose NEGATIVE (Negative); Urine Ketones NEGATIVE (Negative); Urine Microscopic Reflex YN ORDER UMIC; Urine Mucus 4+ /HPF (None Seen); Urine Nitrite NEGATIVE (Negative); Urine Protein 3+ (Negative); Urine RBC >50 /HPF (None Seen); Urine Urobilinogen Normal (Normal); Urine WBC >50 /HPF (<5); Urine pH 5.5 (5.0-7.0)
--- NOTE | 2023-09-15 08:33 | RAD REPORT ---
EXAM DESCRIPTION: CT - Abdomen Pelvis Wo Contrast - 09/15/2023 7:12 am CLINICAL HISTORY: ABD PAIN COMPARISON: Abdomen Pelvis W Contrast dated 12/06/2016 TECHNIQUE: Thin cut axial CT imaging of the abdomen and pelvis was performed without IV contrast. Mu ltiplanar reformats were generated and reviewed. All CT scans are performed using dose optimization technique as appropriate and may include automated exposure control or mA/KV adjustment according to patient size. FINDINGS: No suspicious findings in the lung bases. The liver, spleen, adrenal glands, and pancreas show no suspicious findings. Gallbladder and biliary tree are also without suspicious finding. Symmetric renal contour, without suspicious parenchymal findings within limits of noncontrast techniq ue. No evidence of radiopaque calculi or hydroureteronephrosis. No dilated bowel loops or bowel wall thickening. No free air, free fluid or inflammatory stranding. N o hernia, mass or bulky lymphadenopathy. The urinary bladder is suboptimally distended. Suprapubic ca theter in place, with balloon present below the level of the prostate. No suspicious bony findings. IMPRESSION: Suprapubic catheter in place, with balloon present below the level of the prostate. Plea se consider repositioning the catheter.
--- NOTE | 2023-09-15 08:52 | EDPHYS ---
Physician Documentation [facility] Name: Kiko Root Age: 83 yrs Sex: Male : 1940 Arrival Date: 09/15/2023 Time: 05:58 Bed 20 Private MD: ED Physician Александр Skinner HPI: 09/14 06:43 This 83 yrs old Male presents to ER via EMS with complaints of Problem With ec2 Urinary Catheter. 06:43 Patient arrives today for evaluation of fevers as well as urinary problems. Patient ec2 with previous indwelling suprapubic catheter, had this removed and is having issues with urination. Patient reports fevers and chills, abdominal discomfort as well.. Historical: - Allergies: 06:10 No Known Allergies; cm10 - PMHx: 06:10 Anxiety; Chronic pain; Depression; Diabetes - NIDDM; Hypertension; Hypothyroidism; cm10 paraplegic; - Immunization history:: Adult Immunizations up to date. - Infectious Disease History:: Denies. - Social history:: Smoking status: Patient denies any tobacco usage or history of. ROS: 06:43 Constitutional: as per hpi ec2 Exam: 06:43 Constitutional: GEN: NAD Head: atraumatic Eyes: EOMI Ears: External ears are ec2 normal. CV: regular rate LUNGS: no respiratory distress ABD: non-distended, soft, generally tender, no guarding, not rigid SKIN: no evidence of rashes MSK: no evidence of trauma NEURO: moves all extremities equally Vital Signs: 06:08 BP 80 / 43; Pulse 98; Resp 18; Temp 98.3; Pulse Ox 94% on R/A; cm10 06:40 Weight 86.18 kg; ha1 06:55 BP 89 / 69; ec2 07:21 BP 89 / 65; Pulse 95; Resp 18; Pulse Ox 96% on R/A; db 07:54 BP 111 / 63; Pulse 84; Resp 18; Pulse Ox 95% on R/A; db 08:00 BP 109 / 72; Pulse 88; Resp 18; Pulse Ox 96% on R/A; db 08:30 BP 116 / 68; Pulse 82; Resp 18; Pulse Ox 95% on R/A; db 09:00 BP 118 / 74; Pulse 86; Resp 18; Pulse Ox 90% on R/A; db 09:30 BP 118 / 65; Pulse 83; Resp 20; Pulse Ox 91% on R/A; db MDM: 06:15 Patient medically screened. ec2 06:43 Data reviewed: vital signs. ED course: Patient arrives today for evaluation of fever ec2 and concern for urinary pathology. Examination remarkable for hypotensive individual is otherwise in no acute distress with a reassuring examination. Will place Owusu catheter, obtain CT imaging, obtain lab work.. 06:58 ED course: EKG independently reviewed and interpreted by me, shows normal sinus rhythm, ec2 rate of 93, no acute ST segment elevations, nonconcerning intervals. . 08:54 Differential Diagnosis UTI, sepsis, urinary outlet obstruction. Consideration of rt Admission/Observation Patient was admitted/placed on observation. Management of patient was discussed with the following: Hospitalist: Agrees to admit. I considered the following discharge prescriptions or medication management in the emergency department Medications were administered in the Emergency Department. See MAR. Independent interpretation of the following test(s) in the Emergency Department CT Scan: My interpretation is No bowel obstruction, ureterolithiasis, interpretation of ct images. Care significantly affected by the following chronic conditions: Neurogenic bladder. Counseling: I had a detailed discussion with the patient and/or guardian regarding the historical points, exam findings, and any diagnostic results supporting the discharge/admit diagnosis, lab results, radiology results, the need for further work-up and treatment in the hospital. Response to treatment: the patient's symptoms have markedly improved after treatment. 09/14 06:07 Order name: Blood Culture Adult (2) ec2 09/14 06:07 Order name: CBC with Diff; Complete Time: 08:26 ec2 09/14 06:07 Order name: CMP; Complete Time: 06:59 ec2 09/14 06:07 Order name: Lactate w/ 2H reflex if indic.; Complete Time: 08:03 ec2 09/14 06:07 Order name: Protime (+inr); Complete Time: 06:43 ec2 09/14 06:07 Order name: Ptt, Activated; Complete Time: 06:43 ec2 09/14 06:07 Order name: Urinalysis w/ reflexes; Complete Time: 08:26 ec2 09/14 06:37 Order name: CBC Smear Scan; Complete Time: 08:26 EDMS 09/14 08:23 Order name: Manual Differential; Complete Time: 08:26 EDMS 09/14 09:14 Order name: Urine Culture EDMS 09/14 10:03 Order name: AMMONIA; Complete Time: 11:50 db 09/14 10:03 Order name: CMP; Complete Time: 11:50 db 09/14 10:18 Order name: Ammonia EDMS 09/14 10:18 Order name: Comprehensive Metabolic Panel EDMS 09/14 10:18 Order name: Thyroid Stimulating Hormone; Complete Time: 11:50 EDMS 09/14 10:18 Order name: Urinalysis w/ reflexes EDMS 09/14 10:18 Order name: CBC with Automated Diff EDMS 09/14 10:18 Order name: CBC with Automated Diff EDMS 09/14 10:18 Order name: CBC with Automated Diff EDMS 09/14 10:18 Order name: CBC with Automated Diff EDMS 09/14 10:18 Order name: Comprehensive Metabolic Panel EDMS 09/14 10:18 Order name: Comprehensive Metabolic Panel EDMS 09/14 10:18 Order name: Comprehensive Metabolic Panel EDMS 09/14 10:18 Order name: Comprehensive Metabolic Panel EDMS 09/14 10:18 Order name: Magnesium EDMS 09/14 10:18 Order name: Magnesium EDMS 14 10:18 Order name: Magnesium EDMS 09/14 10:18 Order name: Magnesium EDMS 09/14 10:18 Order name: Protime (+INR) EDMS 09/14 10:18 Order name: Protime (+INR) EDMS 09/14 10:18 Order name: PTT, Activated Partial Thromb EDMS 09/14 10:18 Order name: PTT, Activated Partial Thromb EDMS 09/14 10:21 Order name: Lactate Sepsis 2 HR Follow-up; Complete Time: 11:50 EDMS 09/14 10:32 Order name: Glucose, Ancillary Testing; Complete Time: 11:50 EDMS 09/14 19:11 Order name: Glucose, Ancillary Testing EDMS 09/14 06:07 Order name: Chest Single View XRAY; Complete Time: 08:56 ec2 09/14 06:26 Order name: CT Abd/Pelvis - Without Contrast; Complete Time: 08:56 ec2 09/14 06:07 Order name: Accucheck; Complete Time: 07:12 ec2 09/14 06:07 Order name: Cardiac monitoring; Complete Time: 06:40 ec2 09/14 06:07 Order name: Cath; Complete Time: 08:08 ec2 09/14 06:07 Order name: EKG - Nurse/Tech; Complete Time: 07:12 ec2 09/14 06:07 Order name: IV Saline Lock - Large Bore; Complete Time: 06:40 ec2 09/14 06:07 Order name: Labs collected and sent; Complete Time: 06:40 ec2 09/14 06:07 Order name: O2 Per Protocol; Complete Time: 06:40 ec2 09/14 06:07 Order name: O2 Sat Monitoring; Complete Time: 07:12 ec2 09/14 06:07 Order name: Vital Signs; Complete Time: 07:12 ec2 09/14 18:56 Order name: Glucose Level; Complete Time: 19:00 jb4 Administered Medications: 06:40 Drug: Acetaminophen PO 1000 mg PO once Route: PO; ha1 08:39 Follow up: Response: No adverse reaction db 06:40 Drug: NS 0.9% IV (30 ml/kg) 30 ml/kg IV at bolus once; Sepsis Protocol Route: IV; Rate: ha1 bolus; Site: left wrist; 08:45 Follow up: Response: No adverse reaction; IV Status: Completed infusion; IV Intake: db 2500ml 06:40 Drug: Rocephin IV 1 grams IV at calculated rate once; Given slow IV push per pharmacy ha1 instructions Route: IV; Rate: calculated rate; Site: right wrist; 07:10 Follow up: Response: No adverse reaction; IV Status: Completed infusion db Point of Care Testing: Blood Glucose: 10:19 Blood Glucose: 127 mg/dL; db Ranges: Critical Glucose Levels:Adult <50 mg/dl or >400 mg/dl <40 mg/dl or >180 mg/dl Disposition Summary: 09/15/23 08:51 Hospitalization Ordered Notes: Hospitalization Status: Inpatient Admission rt Provider: Aubrey Romero rt Condition: Fair rt Problem: new rt Symptoms: have improved rt Bed/Room Type: Standard rt Location: Telemetry/MedSurg (Inpatient)(09/15/23 18:41) eb Room Assignment: 402(09/15/23 18:41) eb Diagnosis - UTI/ Urinary tract infection, site not specified rt - Severe sepsis without septic shock rt Forms: - Medication Reconciliation Form rt - SBAR form rt - Leadership Thank You Letter rt Critical care time excluding procedures: 08:54 Critical care time: Bedside Care: 30 minutes, Consultation: 5 minutes. Total time: 35 rt minutes Signatures: Dispatcher [employer] EDMS Alma Ortizy, TAFFY CANDY MAKER-C TAFFY CANDY MAKER-Csnw Jose Arguelles, RN RN jb4 Salvador Penn RN RN ja1 Fadumo Puente Heidy, RN RN ha1 Александр Skinner MD MD rt Ashley Root RN RN cm10 Arjun Cruz MD MD ec2 Chica Hodgson RN db Corrections: (The following items were deleted from the chart) 06:08 06:08 BLOOD CULTURE*+BA.LAB.BRZ ordered. EDMS EDMS 06:08 06:08 CBC+H.LAB.BRZ ordered. EDMS EDMS 06:08 06:08 COMPREHENSIVE METABOLIC PANEL+C.LAB.BRZ ordered. EDMS EDMS 06:08 06:08 LACTATE+C.LAB.BRZ ordered. EDMS EDMS 06:08 06:08 PROTIME (+INR)+COAG.LAB.BRZ ordered. EDMS EDMS 06:08 06:08 PTT, ACTIVATED+COAG.LAB.BRZ ordered. EDMS EDMS 06:08 06:08 Urinalysis+U.LAB.BRZ ordered. EDMS EDMS 06:08 06:08 Chest Single View+RAD.RAD.BRZ ordered. EDMS EDMS 06:27 06:27 Abdomen Pelvis Wo Con+CT.RAD.BRZ ordered. EDMS EDMS 17:05 08:51 Telemetry/MedSurg (Inpatient) rt ja1 17:05 08:51 rt ja1 18:26 17:05 Intensive Care Unit ja1 eb 18:26 17:05 2- ja1 eb 18:41 18:26 BR ER HOLD eb eb 18:41 18:26 ERHOLD- eb eb
--- NOTE | 2023-09-15 08:52 | ER ---
Nurse's Notes [facility] Name: Kiko Root Age: 83 yrs Sex: Male : 1940 Arrival Date: 09/15/2023 Time: 05:58 Bed 20 Private MD: Diagnosis: UTI/ Urinary tract infection, site not specified;Severe sepsis without septic shock Presentation: 09/14 06:08 Chief complaint: EMS states: Called to patient's home due to patient pulling out cm10 suprapubic catheter. EMS reports that home health came to patient's home yesterday and replaced catheter. Pt states that he pulled out his catheter today due to no urine output. EMS states that home health nurse reported that patient was acting confused. Coronavirus screen: Client denies travel out of the [place] in the last 14 days. At this time, the client does not indicate any symptoms associated with coronavirus-19. Ebola Screen: Patient denies travel to an Ebola-affected area in the 21 days before illness onset. No symptoms or risks identified at this time. Initial Sepsis Screen: Does the patient meet any 2 criteria? Systolic BP < 90 mmHg. Mean Arterial Pressure (MAP) < 65. HR > 90 bpm. Does the patient have a suspected source of infection? No. Patient's initial sepsis screen is negative. Risk Assessment: Do you want to hurt yourself or someone else? Patient reports no desire to harm self or others. Onset of symptoms was September 15, 2023. 06:08 Method Of Arrival: EMS: [facility] 10 06:08 Acuity: KRUPA 2 cm10 Triage Assessment: 06:11 General: Appears in no apparent distress. comfortable, Behavior is calm, cooperative. cm10 Pain: Denies pain. Neuro: No deficits noted. Level of Consciousness is awake, alert, obeys commands, Oriented to person, place, time, situation. Respiratory: No deficits noted. Airway is patent Respiratory effort is even, unlabored, Respiratory pattern is regular, symmetrical. : Pt pulled out catheter. Derm: No deficits noted. Skin is intact, Skin is pink, warm \T\ dry. 06:43 GI: Stools are reported to be diarrhea. Last BM was September 15, 2023. Reports diarrhea. cm10 Historical: - Allergies: 06:10 No Known Allergies; cm10 - PMHx: 06:10 Anxiety; Chronic pain; Depression; Diabetes - NIDDM; Hypertension; Hypothyroidism; cm10 paraplegic; - Immunization history:: Adult Immunizations up to date. - Infectious Disease History:: Denies. - Social history:: Smoking status: Patient denies any tobacco usage or history of. Screenin:27 Abuse screen: Denies threats or abuse. Nutritional screening: No deficits noted. On. ha1 Tuberculosis screening: No symptoms or risk factors identified. 08:44 [facility] ED Fall Risk Assessment (Adult) History of falling in the last 3 months, db including since admission No falls in past 3 months (0 pts) Confusion or Disorientation No (0 pts) Intoxicated or Sedated No (0 pts) Impaired Gait Yes (1 pt) Mobility Assist Device Used Yes (1 pt) Altered Elimination Yes (1 pt) Score/Fall Risk Level 3 or more points = High Risk Oriented to surroundings, Maintained a safe environment. Assessment: 06:12 Reassessment: CODE SEPSIS CALLED AT 0607. cm10 06:42 Reassessment: Pt noted to have large amount of diarrhea on brief and down leg upon cm10 assessment. Pt cleaned and new diaper placed. Pt reports that he has had diarrhea for 1 week. 07:03 Reassessment: To CT now VIA stretcher. ss 07:25 Reassessment: REPORT RECEIVED FROM NORMA EDGAR. PT RETURNED FROM CT TO ROOM. db 07:26 Reassessment: back from CT. ha1 07:30 Reassessment: Patient appears in no apparent distress at this time. Patient and/or db family updated on plan of care and expected duration. Pain level reassessed. Patient is alert, oriented x 3, equal unlabored respirations, skin warm/dry/pink. General: Appears in no apparent distress. comfortable, Behavior is calm, cooperative. Neuro: Level of Consciousness is awake, alert, obeys commands, Oriented to person, place, time, situation. Respiratory: Airway is patent Respiratory effort is even, unlabored, Respiratory pattern is regular, symmetrical. : suprapubic catheter in place suprapubic catheter in placed. 08:00 Reassessment: Patient appears in no apparent distress at this time. Patient and/or db family updated on plan of care and expected duration. Pain level reassessed. Patient is alert, oriented x 3, equal unlabored respirations, skin warm/dry/pink. 08:55 Neuro: Level of Consciousness is obeys commands, SLEEPING AND EASILY AROUSES. db 09:00 Reassessment: Patient appears in no apparent distress at this time. Patient and/or db family updated on plan of care and expected duration. Pain level reassessed. 09:55 Reassessment: Patient appears in no apparent distress at this time. Patient and/or db family updated on plan of care and expected duration. Pain level reassessed. General: Appears in no apparent distress. comfortable, Behavior is cooperative. Neuro: Level of Consciousness is obeys commands, lethargic, Oriented to person, place, time, PT NOW SLEEPIER THAN BEFORE. NOTIFIED PROVIDER. HOSPITALIST AT BEDSIDE. 12:05 Neuro: Level of Consciousness is obeys commands, lethargic, Oriented to person, place, cp4 time, situation, Speech is normal, Facial symmetry appears normal, Pupils are PERRLA. 18:00 Reassessment: supervisor parachute manufacturing notified that ICU still has a patient waiting to be cp4 transferred before patient can be moved. Vital Signs: 06:08 BP 80 / 43; Pulse 98; Resp 18; Temp 98.3; Pulse Ox 94% on R/A; cm10 06:40 Weight 86.18 kg; ha1 06:55 BP 89 / 69; ec2 07:21 BP 89 / 65; Pulse 95; Resp 18; Pulse Ox 96% on R/A; db 07:54 BP 111 / 63; Pulse 84; Resp 18; Pulse Ox 95% on R/A; db 08:00 BP 109 / 72; Pulse 88; Resp 18; Pulse Ox 96% on R/A; db 08:30 BP 116 / 68; Pulse 82; Resp 18; Pulse Ox 95% on R/A; db 09:00 BP 118 / 74; Pulse 86; Resp 18; Pulse Ox 90% on R/A; db 09:30 BP 118 / 65; Pulse 83; Resp 20; Pulse Ox 91% on R/A; db ED Course: 06:06 Patient arrived in ED. ec2 06:07 Patient has correct armband on for positive identification. Placed in gown. Bed in low ha1 position. Call light in reach. Side rails up X 1. 06:10 Triage completed. cm10 06:10 Client placed on continuous cardiac and pulse oximetry monitoring. NIBP monitoring ha1 applied. panel monitor on. Door closed. Warm blanket given. Pillow given. 06:10 Inserted saline lock: 20 gauge in right wrist, using aseptic technique. Blood collected.ha1 06:11 Arm band placed on Patient placed in an exam room, on a stretcher, on pulse oximetry. cm10 06:13 Ashley Root, RN is Primary Nurse. cm10 06:15 Arjun Cruz MD is Attending Physician. ec2 06:40 Blood Culture Adult (2) Sent. ha1 06:40 CMP Sent. ha1 06:40 Lactate w/ 2H reflex if indic. Sent. ha1 06:40 Protime (+inr) Sent. ha1 06:40 Ptt, Activated Sent. ha1 06:40 Urinalysis w/ reflexes Sent. ha1 06:41 Cleaned of incontinence. Linen changed. cm10 07:03 Attending Physician role handed off by Arjun Cruz MD rt 07:03 Александр Skinner MD is Attending Physician. rt 07:14 CT Abd/Pelvis - Without Contrast In Process Unspecified. EDMS 07:27 Chest Single View XRAY In Process Unspecified. EDMS 08:00 Montanez cath inserted, using sterile technique, 18 Fr., by me, balloon inflated, to db gravity drainage, urine specimen collected. suprapubic catheter placed. 08:00 Urine collected: Montanez catheter specimen, cloudy, blood tinged. db 08:09 Primary Nurse role handed off by Ashley Root, NORMA db 08:09 Chica Hodgson, RN is Primary Nurse. db 08:44 Provided Education on: labs, fluids, and possible admission. db 08:44 No provider procedures requiring assistance completed. db 08:51 Aubrey Romero MD is Hospitalizing Provider. rt 09:50 Repeat lab(s) drawn. by me, sent to lab. db 10:17 Report given to NORMA CONTI. db 19:58 Patient admitted, IV remains in place. cp4 Administered Medications: 06:40 Drug: Acetaminophen PO 1000 mg PO once Route: PO; ha1 08:39 Follow up: Response: No adverse reaction db 06:40 Drug: NS 0.9% IV (30 ml/kg) 30 ml/kg IV at bolus once; Sepsis Protocol Route: IV; Rate: ha1 bolus; Site: left wrist; 08:45 Follow up: Response: No adverse reaction; IV Status: Completed infusion; IV Intake: db 2500ml 06:40 Drug: Rocephin IV 1 grams IV at calculated rate once; Given slow IV push per pharmacy ha1 instructions Route: IV; Rate: calculated rate; Site: right wrist; 07:10 Follow up: Response: No adverse reaction; IV Status: Completed infusion db Medication: 08:44 VIS not applicable for this client. db Point of Care Testing: Blood Glucose: 10:19 Blood Glucose: 127 mg/dL; db Ranges: Intake: 08:45 IV: 2500ml; Total: 2500ml. db Outcome: 08:51 Decision to Hospitalize by Provider. rt 19:50 Patient left the ED. 4 19:57 Admitted to Tele accompanied by tech, via stretcher, with chart, cp4 19:57 Condition: stable 19:57 Instructed on the need for admit, Demonstrated understanding of instructions, Signatures: Dispatcher [employer] EDMS Josette Hernandez RN RN Jose Arguelles RN RN [id number] Cathie Wiseman RN RN ha1 Chica Hodgson RN RN db Александр Skinner MD MD rt Ashley Root RN RN 10 Arjun Cruz MD MD ec2 Ludmila Gold cp4 Corrections: (The following items were deleted from the chart) 06:41 06:08 Chief complaint: EMS states: Called to patient's home due to patient pulling out cm10 montanez catheter. EMS reports that home health came to patient's home yesterday and replaced catheter. Pt states that he pulled out his catheter today due to no urine output. EMS states that home health nurse reported that patient was acting confused. cm10 08:16 08:05 Montanez cath inserted, using sterile technique, 18 Fr., by me, balloon inflated, to db gravity drainage, urine specimen collected. suprapubic catheter placed db 09:57 09:00 Reassessment: Patient appears in no apparent distress at this time. Patient db and/or family updated on plan of care and expected duration. Pain level reassessed. Patient is alert, oriented x 3, equal unlabored respirations, skin warm/dry/pink. db 10:18 09:56 Neuro: Level of Consciousness is obeys commands, SLEEPING AND EASILY AROUSES. db db 10:19 09:56 Neuro: Level of Consciousness is obeys commands, SLEEPING AND EASILY AROUSES. db db
--- NOTE | 2023-09-15 08:54 | RAD REPORT ---
EXAM DESCRIPTION: Ilanat Single View09/15/2023 7:25 am CLINICAL HISTORY: COUGH COMPARISON: Chest Single View dated 10/14/2018; Chest Single View dated 01/01/2018; Chest Single View d ated 12/09/2016; Chest Single View dated 12/06/2016 TECHNIQUE: Portable AP view of the chest. FINDINGS: The lungs are clear. No pneumothorax or effusion. The cardiomediastinal contours are unre markable. IMPRESSION: No acute cardiopulmonary process.
[2023-09-15 10:34] LABS: Albumin 2.7 g/dL (3.4-5.0); Albumin/Globulin Ratio 0.6 (1.1-1.8); Anion Gap 11.7 mEq/L (5.0-15.0); Bilirubin Total 0.5 mg/dL (0.2-1.0); Globulin 4.2 g/dL (2.3-3.5); Potassium 3.7 mEq/L (3.5-5.1); Protein, Total 6.9 g/dL (6.4-8.2)
[2023-09-15] MEDS: VANCOMYCIN 2.25 GM in NA CHLORIDE 0.9% 500 ML IVPB ONE (11:00)
[2023-09-15] MEDS: ENOXAPARIN 40 MG/0.4 ML SQ SCH (11:00)
[2023-09-15] MEDS ORDERED: SODIUM CHLORIDE 0.9% 10ML INJ IV PRN (11:26)
--- NOTE | 2023-09-15 11:27 | P.HP ---
Certification for Inpatient Patient admitted to: Inpatient With expected LOS: >2 Midnights Patient will require the following post-hospital care: Senior Care Practitioner: I am a practitioner with admitting privileges, knowledge of patient current condition, hospital course, and medical plan of care. Services: Services provided to patient in accordance with Admission requirements found in Title 42 Section 412.3 of the Code of Federal Regulations <Roberta Ortiz - Last Filed: 09/15/23 11:36> Patient History Date of Service: 09/15/23 Reason for admission: UTI, Sepsis, AMS History of Present Illness: Mr. Root is an 83-year-old gentleman who presented today to the emergency department with a problem with his suprapubic catheter. On evaluation in the emergency department he was oriented x 3 and answering questions appropriately. His vital signs included 3 hypotensive episodes, unknown if that was related to catheter removal and entry secondary to autonomic dysreflexia or sepsis. His white count is 11.2, H&H 12.8/39.1 with left shift of 91.7%, with 4 bands. His electrolytes are surprisingly normal with a creatinine of 0.89. His lactate is elevated at 3.9. Blood cultures are pending. His suprapubic catheter was removed and replaced. His urine was extremely turbid with 3+ blood, 3+ protein, 500 esterase. It was sent for culture and sensitivity. Chest x-ray was within normal limits. CT abdomen and pelvis without contrast showed no acute findings. History was almost totally obtained from previous records and pharmacy query. Mr. Root apparently lives alone with a caregiver. 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 He also apparently has a history of diabetes, hypertension, hyperlipidemia, hypothyroidism, chronic pain syndrome. His last admission at this facility was 10/13/18 We were asked to admit for inpatient IV antibiotics. On my arrival to the em ergency department, Mr. Root was difficult to arouse. His ED nurse also noted an acute change in his mentation. He is not confused but extremely somnolent. Vital signs remained stable. We will admit him for further investigation and treatment. Repeat lactate, ammonia level, and complete metabolic panel were were ordered stat. Ammonia 17, CMP and lactate pending. Fingerstick blood sugar 126. 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 Paraplegia - Family History Mother -: Cancer Brother Notes: Arthritis Sister -: Other (see notes) Notes: Lupus - Social History Smoking Status: Current every day smoker Alcohol use: No CD- Drugs: No Caffeine use: Yes Place of Residence: Home <Roberta Ortiz - Last Filed: 09/15/23 11:36> Date of Service: 09/15/23 <Aubrey Romero - Last Filed: 09/15/23 15:27> Allergies No Known Allergies Allergy (Verified 10/14/18 04:30) Home Medications: Gabapentin [Neurontin*] 300 mg PO BEDTIME 12/31/17 Levothyroxine Sodium [Synthroid] 175 tab PO DAILY 12/31/17 Metformin ER [Glucophage ER*] 1 tab PO BID 12/31/17 Meloxicam [Mobic*] 7.5 mg PO DAILY 10/13/18 Tizanidine HCl 2 mg PO BID PRN 10/13/18 Trazodone [Desyrel*] 50 mg PO DAILY 10/13/18 Meropenem [Merrem 1 GM/100 ML NS IVPB] 1 gm IV Q8H #1 bag 10/15/18 levoFLOXacin [Levaquin] 500 mg PO DAILY #14 tab 10/15/18 Review of Systems 10-point ROS is otherwise unremarkable Genitourinary: As per HPI <Roberta Ortiz - Last Filed: 09/15/23 11:36> Physical Examination - Physical Exam General: Obese, Other (Obtunded) HEENT: Normocephalic Neck: JVD not distended Respiratory: Clear to auscultation bilaterally Cardiovascular: Normal pulses Capillary refill: <2 Seconds Gastrointestinal: Soft and benign Musculoskeletal: Other (paraplegia) Integumentary: Skin breakdown, Pressure ulcer Neurological: Abnormal speech, Abnormal strength, Abnormal affect Lymphatics: No axilla or inguinal lymphadenopathy Urinary: Suprapubic catheter External genitalia: No edema, No lesions Rectal: Deferred - Studies Laboratory Data (last 24 hrs) 09/15/23 09/15/23 09/15/23 09:50 06:20 06:20 WBC Hgb Hct Plt Count PT 13.7 H INR 1.25 APTT 30.9 Sodium 140 137 Potassium 3.7 3.6 BUN 18 19 H Creatinine 0.78 0.89 Glucose 126 H 147 H Total Bilirubin 0.5 0.8 AST 13 L 11 L ALT 14 L 15 L Alkaline Phosphatase 83 95 09/15/23 06:20 WBC 11.20 H Hgb 12.8 L Hct 39.1 L Plt Count 258 PT INR APTT Sodium Potassium BUN Creatinine Glucose Total Bilirubin AST ALT Alkaline Phosphatase <Roberta Ortiz - Last Filed: 09/15/23 11:36> - Studies Laboratory Data (last 24 hrs) 09/15/23 09/15/23 09/15/23 09:50 06:20 06:20 WBC Hgb Hct Plt Count PT 13.7 H INR 1.25 APTT 30.9 Sodium 140 137 Potassium 3.7 3.6 BUN 18 19 H Creatinine 0.78 0.89 Glucose 126 H 147 H Total Bilirubin 0.5 0.8 AST 13 L 11 L ALT 14 L 15 L Alkaline Phosphatase 83 95 09/15/23 06:20 WBC 11.20 H Hgb 12.8 L Hct 39.1 L Plt Count 258 PT INR APTT Sodium Potassium BUN Creatinine Glucose Total Bilirubin AST ALT Alkaline Phosphatase <Aubrey Romero - Last Filed: 09/15/23 15:27> Assessment and Plan - Plan Sepsis with AMS: Admit to ICU Neuro checks q 4h Blood and Urine cultures pending Rocephin and Vancomycin Consult ID PICC line request UTI Rocephin for now (begins 09/14- day 1) New Suprapubic placement 09/14 DM FSBS with SSI NPO for now, until mental status improves Pressure sores: Vancomycin (begins 09/14 day 1) skin protection measures/offloading HTN: Hold antihypertensive medications for now HLD: atorvastatin 10mg po q HS Hypothyroidism: Levothyroxine 125mcg po daily 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 I agree with the note by the TRANSPLANT IMMUNOLOGIST. Pt is an 83yo male with past medical history of paraplegia 2/2 spinal cord injury in 2007, DM II, htn, HLD, hypothyroidism and chronic pain syndrome who presents with a problem with his suprapubic catheter. Pt was not confused but very somnolent. ER physician changed his suprapubic catheter. Lab studies show wbc 11.2, Hgb 12.8, NA 140, K 3.7, Cr 0.78, lactate 3.9 -> 2.6, ammonia 17. Urinalysis is positive for UTI. At bedside, pt is somnolent but arousable. A/P: UTI: Continue iv rocephin and f/u urine cx. Pressure ulcer: Continue iv vanc and f/u cx. Lactic acidosis: lactate is 3.9 -> 2.6 . Will continue IVF and trend lactate. DM II: continue accuchek, SSI and ADA diet Htn: continue home meds HLD: statin Hypothyroidism: Continue synthroid Chronic pain syndrome: Will continue prn pain med. Paraplegia: Continue to turn in air mattress q2h. DVT ppx: SCD Code: full <Aubrey Romero - Last Filed: 09/15/23 15:27>
[2023-09-15] MEDS ORDERED: ENOXAPARIN 40 MG/0.4 ML SQ ONE (11:35)
[2023-09-15] MEDS: NA CHLORIDE 0.9% 1,000 ML IV SCH (11:38)
[2023-09-15] MEDS ORDERED: NA CHLORIDE 0.9% 1,000 ML ONE (11:40)
[2023-09-15] MEDS ORDERED: ALBUTEROL 2.5 MG/3 ML NEB SOL ONE (14:51)
[2023-09-15] MEDS: ALBUTEROL 2.5 MG/3 ML NEB SOL NEB SCH (15:00)
[2023-09-15] MEDS ORDERED: ALBUTEROL 2.5 MG/3 ML NEB SOL NEB PRN (21:43)
[2023-09-15] MEDS: ATORVASTATIN 10 MG TAB PO SCH (21:59)
[2023-09-15] MEDS: Mupirocin NASAL 2 APPL/1 GM TUBE NAS SCH (22:00)
[2023-09-15] MEDS: ACETAMINOPHEN 325 MG TABLET PO PRN (22:56)
[2023-09-16 03:53] LABS: Absolute Eosinophils 0.2 K/uL (0-0.5); Absolute Lymphocytes (CBC) 1.6 K/uL (0.7-4.9); Absolute Monocytes 0.6 K/uL (0.1-1.3); Absolute Neutrophil 7.8 K/uL (1.8-8.0); Basophils % 0.4 % (0-1.3); Eosinophils % 1.6 % (0-4.4); Hematocrit 31.4 % (39.6-49.0); Hemoglobin 10.6 g/dL (13.6-17.9); Lymphocytes % 15.3 % (15.3-44.8); MCH 27.8 pg (27.0-35.0); MCHC 33.6 g/dL (32.0-36.0); MCV 82.7 fL (80-100); MPV 8.8 fL (7.6-11.3); Monocytes % 5.7 % (3.3-12.3); Nucleated Red Blood Cells % 0.1 % (0-0); Platelets 203 thou/uL (152-406); Red Cell Distribution Width 15.5 % (12.1-15.2)
[2023-09-16 03:56] LABS: PT Prothrombin Time 16.1 SECONDS (9.5-12.5); PTT, Activated Partial Thromb 32.5 SECONDS (24.3-36.9); Protime INR 1.48
[2023-09-16 04:22] LABS: Albumin 2.3 g/dL (3.4-5.0); Albumin/Globulin Ratio 0.6 (1.1-1.8); Anion Gap 9.7 mEq/L (5.0-15.0); Bilirubin Total 0.5 mg/dL (0.2-1.0); Globulin 3.7 g/dL (2.3-3.5); Magnesium 1.4 mg/dL (1.6-2.4); Potassium 3.7 mEq/L (3.5-5.1)
[2023-09-16] MEDS ORDERED: VANCOMYCIN 1.5 GM in NA CHLORIDE 0.9% 500 ML IVPB SCH (05:00)
[2023-09-16] MEDS: VANCOMYCIN 1.5 GM in NA CHLORIDE 0.9% 500 ML IVPB SCH (05:00)
[2023-09-16] MEDS: VANCOMYCIN 1 GM/VIAL ONE (05:00)
[2023-09-16] MEDS: VANCOMYCIN 500 MG/VIAL ONE (05:01)
[2023-09-16] MEDS: NA CHLORIDE 0.9% 500 ML ONE (05:11)
[2023-09-16] MEDS: LEVOTHYROXINE SOD 0.125 MG TAB PO SCH (06:27)
[2023-09-16] MEDS: PNEUMOCOCCAL VACCINE 0.5 ML IMVAC ONE (08:00)
--- NOTE | 2023-09-16 08:35 | P.PN ---
Subjective Date of Service: 09/16/23 Chief Complaint: UTI, Sepsis, AMS Admitted with sepsis with altered mental status, likely secondary to acute cystitis versus pressure ulcer Patient is a paraplegic with chronic indwelling Owusu catheter, with acute cystitis Patient currently resides at home with caregiver - Physical Exam General: Obese, confused HEENT: Normocephalic Neck: JVD not distended Respiratory: Clear to auscultation bilaterally Cardiovascular: Normal pulses Capillary refill: <2 Seconds Gastrointestinal: Soft and benign Musculoskeletal: Other (paraplegia) Integumentary: Skin breakdown, Pressure ulcer Neurological: Abnormal speech, Abnormal strength, Abnormal affect Lymphatics: No axilla or inguinal lymphadenopathy Urinary: Suprapubic catheter External genitalia: No edema, No lesions Review of Systems Per HPI Physical Examination - Vital Signs Temperature: 98.3 F Blood Pressure: 100/52 Pulse: 62 Respirations: 18 Pulse Ox (%): 95 - Studies Laboratory Data (last 24 hrs) 09/15/23 09:50 Sodium 140 Potassium 3.7 BUN 18 Creatinine 0.78 Glucose 126 H Total Bilirubin 0.5 AST 13 L ALT 14 L Alkaline Phosphatase 83 Assessment And Plan - Plan - Plan Sepsis with AMS: Acute cystitis with hematuria Metabolic encephalopathy secondary to sepsis lactic acidosis Chronic indwelling Owusu catheter Neuro checks q 4h Blood and Urine cultures pending Rocephin and Vancomycin Consult ID PICC line request Owusu catheter changed in the ER prior to admission by ER physician Speech eval for swallowing, cognition evaluation Rocephin for now (begins 09/14- day 1) New Suprapubic placement 09/14 DM unknown control FSBS with SSI NPO for now, until mental status improves Pressure sores: Vancomycin (begins 09/14 day 1) skin protection measures/offloading Wound care consult eval HTN: Hold antihypertensive medications for now HLD: atorvastatin 10mg po q HS Hypothyroidism: Levothyroxine 125mcg po daily 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
[2023-09-16] MEDS: PANTOPRAZOLE 40 MG INJ IVP SCH (09:00)
[2023-09-16] MEDS: POTASSIUM CL SA 10 MEQ TAB PO ONE (09:00)
[2023-09-16] MEDS: CEFTRIAXONE 1,000 MG in NA CHLORIDE 0.9% 50 ML IVPB SCH ×2 (09:00→20:57)
--- NOTE | 2023-09-16 10:13 | P.CNS ---
Date of Consult: 09/16/23 Reason for Consult: UTI, sepsis Chief Complaint: UTI, Sepsis, AMS History of Present Illness: Patient is an 83 yo M with a PMH as listed below who presented to the ED due to issues with his suprapubic catheter and altered mental status. Infectious disease consulted for sepsis secondary to CAUTI (POA). Allergies No Known Allergies Allergy (Verified 10/14/18 04:30) Home medications list reviewed: Yes Home Medications: Gabapentin [Neurontin*] 300 mg PO BEDTIME 12/31/17 Levothyroxine Sodium [Synthroid] 175 tab PO DAILY 12/31/17 Metformin ER [Glucophage ER*] 1 tab PO BID 12/31/17 Meloxicam [Mobic*] 7.5 mg PO DAILY 10/13/18 Tizanidine HCl 2 mg PO BID PRN 10/13/18 Trazodone [Desyrel*] 50 mg PO BEDTIME 10/13/18 Meropenem [Merrem 1 GM/100 ML NS IVPB] 1 gm IV Q8H #1 bag 10/15/18 levoFLOXacin [Levaquin] 500 mg PO DAILY #14 tab 10/15/18 - Past Medical/Surgical History Diabetic: Yes -: Spinal Cord Injury 2007 -: Paralysis in legs bilateral -: Diabetes -: Lower Extremity Edema -: Chronic Pain -: Hypothyroidism -: Anxiety -: Depression -: hypertension -: paraplegia -: Spinal Surgery 2007 -: Back surgery -: Skin Grafts -: Suprapubic cath placement -: Circumcision Psychosocial/ Personal History: 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 Paraplegia - Family History Mother Medical History: Cancer Brother Medical History: Other (see notes) Notes: Arthritis Sister Medical History: Other (see notes) Notes: Lupus - Social History Smoking Status: Current every day smoker Alcohol use: No CD- Drugs: No Caffeine use: Yes Place of Residence: Home Review of Systems 10-point ROS is otherwise unremarkable General: Weakness Physical Examination Temp Pulse Resp BP Pulse Ox 98.3 F 62 18 100/52 L 95 09/16/23 08:35 09/16/23 08:35 09/16/23 08:35 09/16/23 08:35 09/16/23 08:35 General: Alert, In no apparent distress, Oriented x3 HEENT: Atraumatic, Normocephalic Respiratory: Normal air movement, Other (unlabored respirations on room air) Cardiovascular: Regular rate/rhythm Gastrointestinal: Normal bowel sounds, Soft and benign Musculoskeletal: Other (paraplegic) Integumentary: Pressure ulcer (sacrum stage II) Neurological: Normal speech Urinary: Owusu catheter (chronic) Laboratory Data -Reviewed Microbiology data -Reviewed Imagings Data: -Reviewed Conclusions/Impression: Problem list Sepsis Secondary to CAUTI (POA) & Gram Negative Bacteremia Diabetes Mellitus Hypertension Paraplegia Hyperlipidemia Catheter associated urinary tract infection (POA) Gram-negative bacteremia -Blood cultures 09/14: Gram-negative rods in 1 of 4 bottles -Urine culture 09/14: 3+ gram-negative rods and 3+ nonbeta-hemolytic strep -Currently on Rocephin and vancomycin (started 09/14) -Suprapubic catheter exchanged in ED Recommendations -Continue Rocephin and vancomycin for now. - Will follow-up with final blood and urine culture results and adjust antibiotics as appropriate -Monitor CBC, BMP, Vanco troughs -Pressure offloading measures. - strict blood glucose control - supportive care Case discussed with Nelson Aguirre
[2023-09-16 12:39] VITALS: BMI 27.3
[2023-09-16] MEDS: MELATONIN 5 MG TABLET PO PRN (22:08)
[2023-09-17 07:57] LABS: Absolute Basophils 0.1 K/uL (0-0.5); Absolute Eosinophils 0.2 K/uL (0-0.5); Absolute Lymphocytes (CBC) 1.9 K/uL (0.7-4.9); Absolute Monocytes 0.6 K/uL (0.1-1.3); Absolute Neutrophil 5.1 K/uL (1.8-8.0); Basophils % 0.9 % (0-1.3); Eosinophils % 2.2 % (0-4.4); Hematocrit 35.1 % (39.6-49.0); Hemoglobin 11.5 g/dL (13.6-17.9); Lymphocytes % 24.1 % (15.3-44.8); MCH 27.1 pg (27.0-35.0); MCHC 32.6 g/dL (32.0-36.0); MCV 82.9 fL (80-100); MPV 8.7 fL (7.6-11.3); Monocytes % 7.6 % (3.3-12.3); Neutrophils % 65.2 % (41.7-73.7); Platelets 203 thou/uL (152-406); RBC Red Blood Cell Count 4.24 M/uL (4.33-5.43); Red Cell Distribution Width 15.7 % (12.1-15.2)
[2023-09-17 08:18] LABS: Albumin 2.4 g/dL (3.4-5.0); Albumin/Globulin Ratio 0.6 (1.1-1.8); Anion Gap 7.8 mEq/L (5.0-15.0); Bilirubin Total 0.4 mg/dL (0.2-1.0); Magnesium 1.6 mg/dL (1.6-2.4); Potassium 3.8 mEq/L (3.5-5.1); Protein, Total 6.4 g/dL (6.4-8.2)
--- NOTE | 2023-09-17 09:43 | P.PN ---
Infectious Disease Progress Note Chief Complaint: UTI, Sepsis, AMS Subjective: Patient seen and examined at bedside. In no apparent distress. No acute events overnight. He denies any new or worsening complaints at this time. Plan of care discussed with patient. Physical Examination Temp Pulse Resp BP Pulse Ox 97.9 F 51 14 163/71 H 95 09/17/23 08:00 09/17/23 08:00 09/17/23 08:00 09/17/23 08:00 09/17/23 08:00 General: Alert, In no apparent distress, Oriented x3 HEENT: Atraumatic, Normocephalic. missing teeth. Respiratory: Normal air movement, unlabored respirations on room air Cardiovascular: Regular rate/rhythm Gastrointestinal: Normal bowel sounds, Soft and benign Integumentary: Pressure ulcer sacrum stage II Neurological: Normal speech Urinary: Owusu catheter (chronic) Laboratory Data -Reviewed Microbiology data -Reviewed Imagings Data: -Reviewed Assessment and Plan Problem list Sepsis Secondary to CAUTI (POA) & Gram Negative Bacteremia Diabetes Mellitus Hypertension Paraplegia Hyperlipidemia Catheter associated urinary tract infection (POA) Gram-negative bacteremia -Blood cultures 09/14: Gram-negative rods in 2 of 4 bottles -Urine culture 09/14: 3+ gram-negative rods -Currently on Rocephin and vancomycin (started 09/14) -Suprapubic catheter exchanged in ED Recommendations -Continue Rocephin for now. Discontinue Vancomycin. - Will follow-up with final blood and urine culture results and adjust antibiotics as appropriate -Monitor CBC, BMP, Vanco troughs -Pressure offloading measures. - strict blood glucose control - supportive care Case discussed with Nelson Aguirre
--- NOTE | 2023-09-17 17:32 | P.PN ---
Subjective Date of Service: 09/17/23 Chief Complaint: UTI, Sepsis, AMS Admitted with sepsis with altered mental status, likely secondary Sepsis Secondary to CAUTI (POA) & Gram Negative Bacteremia Patient is a paraplegic with chronic indwelling Owusu catheter, with acute cystitis Cauti Patient currently resides at home with caregiver - Physical Exam General: Obese, x 3 HEENT: Normocephalic Neck: JVD not distended Respiratory: Clear to auscultation bilaterally Cardiovascular: Normal pulses Capillary refill: <2 Seconds Gastrointestinal: Soft and benign Musculoskeletal: Other (paraplegia) Integumentary: Skin breakdown, Pressure ulcer Neurological: Abnormal speech, Abnormal strength, Abnormal affect Lymphatics: No axilla or inguinal lymphadenopathy Urinary: Suprapubic catheter External genitalia: No edema, No lesions Review of Systems Per HPI Physical Examination - Vital Signs Temperature: 97.7 F Blood Pressure: 158/70 Pulse: 51 Respirations: 16 Pulse Ox (%): 97 - Studies Microbiology Data (last 24 hrs): 09/15/23 06:10 Blood - Blood Gram Stain - Final 09/15/23 06:20 Blood - Blood Gram Stain - Final Assessment And Plan - Plan - Plan Bacteremia sepsis with AMS: Acute cystitis with hematuria CAUTI Metabolic encephalopathy secondary to sepsis lactic acidosis Chronic indwelling Owusu catheter Neuro checks q 4h Blood and Urine cultures pending Rocephin and Vancomycin Consult ID PICC line request Owusu catheter changed in the ER prior to admission by ER physician Speech eval for swallowing, cognition evaluation Catheter associated urinary tract infection (POA) Gram-negative bacteremia -Blood cultures 09/14: Gram-negative rods in 2 of 4 bottles -Urine culture 09/14: 3+ gram-negative rods -Currently on Rocephin and vancomycin (started 09/14) -Suprapubic catheter exchanged in ED DM unknown control FSBS with SSI NPO for now, until mental status improves Pressure sores: Vancomycin (begins 09/14 day 1) skin protection measures/offloading Wound care consult eval HTN: Hold antihypertensive medications for now HLD: atorvastatin 10mg po q HS Hypothyroidism: Levothyroxine 125mcg po daily 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 plans to return home with his night time nanny caregiver and [facility] Critical Care: No Time Spent Managing PTS Care (In Minutes): 35
[2023-09-17] MEDS ORDERED: VANCOMYCIN 1.5 GM in NA CHLORIDE 0.9% 500 ML IVPB SCH (23:00)
[2023-09-18 05:55] LABS: Absolute Basophils 0.1 K/uL (0-0.5); Absolute Eosinophils 0.2 K/uL (0-0.5); Absolute Lymphocytes (CBC) 2.2 K/uL (0.7-4.9); Absolute Monocytes 0.5 K/uL (0.1-1.3); Absolute Neutrophil 4.4 K/uL (1.8-8.0); Basophils % 1.1 % (0-1.3); Eosinophils % 2.7 % (0-4.4); Hematocrit 35.3 % (39.6-49.0); Hemoglobin 11.4 g/dL (13.6-17.9); MCH 26.6 pg (27.0-35.0); MCHC 32.3 g/dL (32.0-36.0); MCV 82.3 fL (80-100); MPV 8.5 fL (7.6-11.3); Monocytes % 7.3 % (3.3-12.3); Neutrophils % 58.9 % (41.7-73.7); Nucleated Red Blood Cells % 0.1 % (0-0); Platelets 219 thou/uL (152-406); RBC Red Blood Cell Count 4.29 M/uL (4.33-5.43); Red Cell Distribution Width 15.7 % (12.1-15.2)
[2023-09-18 06:13] LABS: Albumin 2.4 g/dL (3.4-5.0); Albumin/Globulin Ratio 0.6 (1.1-1.8); Anion Gap 7.7 mEq/L (5.0-15.0); Bilirubin Total 0.4 mg/dL (0.2-1.0); Globulin 4.3 g/dL (2.3-3.5); Magnesium 1.4 mg/dL (1.6-2.4); Phosphorus 3.4 mg/dL (2.5-4.9); Potassium 3.7 mEq/L (3.5-5.1); Protein, Total 6.7 g/dL (6.4-8.2)
--- NOTE | 2023-09-18 07:45 | P.DS ---
Admission Date: 09/15/23 Discharge Date: 09/18/23 Disposition: DC HOME/HOME HEALTH CARE Discharge Condition: GOOD Reason for Admission: UTI, Sepsis, AMS Brief History of Present Illness: Mr. Root is an 83-year-old gentleman who presented today to the emergency department with a problem with his suprapubic catheter. On evaluation in the emergency department he was oriented x 3 and answering questions appropriately. His vital signs included 3 hypotensive episodes, unknown if that was related to catheter removal and entry secondary to autonomic dysreflexia or sepsis. His white count is 11.2, H&H 12.8/39.1 with left shift of 91.7%, with 4 bands. His electrolytes are surprisingly normal with a creatinine of 0.89. His lactate is elevated at 3.9. Blood cultures are pending. His suprapubic catheter was removed and replaced. His urine was extremely turbid with 3+ blood, 3+ protein, 500 esterase. It was sent for culture and sensitivity. Chest x-ray was within normal limits. CT abdomen and pelvis without contrast showed no acute findings. History was almost totally obtained from previous records and pharmacy query. Mr. Root apparently lives alone with a caregiver. 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 He also apparently has a history of diabetes, hypertension, hyperlipidemia, hypothyroidism, chronic pain syndrome. His last admission at this facility was 10/13/18 We were asked to admit for inpatient IV antibiotics. On my arrival to the emergency department, Mr. Root was difficult to arouse. His ED nurse also noted an acute change in his mentation. He is not confused but extremely somnolent. Vital signs remained stable. We will admit him for further investigation and treatment. Repeat lactate, ammonia level, and complete metabolic panel were were ordered stat. Ammonia 17, CMP and lactate pending. Fingerstick blood sugar 126. Patient noted to have a stage II decubitus wound to his sacrum - Physical Exam General: Obese, Other (Obtunded) HEENT: Normocephalic Neck: JVD not distended Respiratory: Clear to auscultation bilaterally Cardiovascular: Normal pulses Capillary refill: <2 Seconds Gastrointestinal: Soft and benign Musculoskeletal: Other (paraplegia) Integumentary: Skin breakdown, Pressure ulcer Neurological: Abnormal speech, Abnormal strength, Abnormal affect Lymphatics: No axilla or inguinal lymphadenopathy Urinary: Suprapubic catheter External genitalia: No edema, No lesions Hospital Course: 83 year-old male patient presented with paraplegia was chronic indwelling suprapubic catheter. Was noted to have pressures ulcers, sepsis with hypotension secondary to acute cystitis. Confusion with metabolic encephalopathy secondary to sepsis from: Chronic indwelling Owusu catheter. Condition improved with IV fluids, IV antibiotics, patient currently resides at home with home health care with caregivers. Discharge Plan: Pt. 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 Patient tolerating diet, stable for discharge to home with follow-up appointment with primary care physician. 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 antibiotics Continue home medicines as previously prescribed GOAL: Clear understanding of disease process INSTRUCTIONS: Physician Discharge Instructions: -Follow-up with PCP in 1 to 2 weeks -Please call Dr. Davila at [phone] if any questions regarding hospital stay -Please call nursing station at [phone] if any nursing or medication questions -Return to the emergency room if symptoms worsen Diet: ADA, low sodium Activity: Fall precautions Vital Signs/Physical Exam: Temp Pulse Resp BP Pulse Ox 97.7 F 51 16 158/70 H 97 09/18/23 07:01 09/18/23 07:01 09/18/23 07:01 09/18/23 07:01 09/18/23 07:01 Laboratory Data at Discharge: WBC 7.50 thou/uL (4.3-10.9) 09/18/23 05:45 Hgb 11.4 g/dL (13.6-17.9) L 09/18/23 05:45 Hct 35.3 % (39.6-49.0) L 09/18/23 05:45 Plt Count 219 thou/uL (152-406) 09/18/23 05:45 PT 16.1 SECONDS (9.5-12.5) H 09/16/23 03:22 INR 1.48 09/16/23 03:22 APTT 32.5 SECONDS (24.3-36.9) 09/16/23 03:22 Sodium 138 mEq/L (136-145) 09/18/23 05:45 Potassium 3.7 mEq/L (3.5-5.1) 09/18/23 05:45 BUN 7 mg/dL (7-18) 09/18/23 05:45 Creatinine 0.70 mg/dL (0.70-1.30) 09/18/23 05:45 Glucose 127 mg/dL (74-106) H 09/18/23 05:45 Phosphorus 3.4 mg/dL (2.5-4.9) 09/18/23 05:45 Magnesium 1.4 mg/dL (1.6-2.4) L 09/18/23 05:45 Total Bilirubin 0.4 mg/dL (0.2-1.0) 09/18/23 05:45 AST 14 U/L (15-37) L 09/18/23 05:45 ALT 18 U/L (16-61) 09/18/23 05:45 Alkaline Phosphatase 76 U/L (45-117) 09/18/23 05:45 Home Medications: Gabapentin [Neurontin*] 300 mg PO BEDTIME 12/31/17 Levothyroxine Sodium [Synthroid] 175 tab PO DAILY 12/31/17 Metformin ER [Glucophage ER*] 1 tab PO BID 12/31/17 Meloxicam [Mobic*] 7.5 mg PO DAILY 10/13/18 Tizanidine HCl 2 mg PO BID PRN 10/13/18 Trazodone [Desyrel*] 50 mg PO BEDTIME 10/13/18 levoFLOXacin [Levaquin*] 500 mg PO DAILY #14 tab 10/15/18 Mupirocin Calcium [Bactroban Nasal*] 1 appl MILLA BID #1 tube 09/18/23 Sulfamethoxazole/Trimethoprim [Bactrim Ds Tablet] 1 each PO BID #20 tab 09/18/23 levoFLOXacin [Levaquin] 500 mg PO DAILY #14 tab 09/18/23 New Medications: Sulfamethoxazole/Trimethoprim [Bactrim Ds Tablet] 1 each PO BID #20 tab Mupirocin Calcium [Bactroban Nasal*] 1 appl MILLA BID #1 tube levoFLOXacin [Levaquin] 500 mg PO DAILY #14 tab Physician Discharge Instructions: 83 year-old male patient presented with paraplegia was chronic indwelling suprapubic catheter. Was noted to have pressures ulcers, sepsis with hypotension secondary to acute cystitis. Confusion with metabolic encephalopathy secondary to sepsis from: Chronic indwelling Owusu catheter. Condition improved with IV fluids, IV antibiotics, patient currently resides at home with home health care with caregivers. Discharge Plan: Pt. 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 Patient tolerating diet, stable for discharge to home with follow-up appointment with primary care physician. PROBLEM: Paraplegia secondary to a spinal cord injury 2007 Pressure ulcers Bacteremia completed vancomycin, continue Rocephin infectious disease following Acute cystitis with hematuria CAUTI Sepsis with AMS vs Metabolic encephalopathy secondary to sepsis Chronic indwelling Owusu catheter changed in the emergency room Plan to discharge home with home health, wound care, Continue home medicines as previously prescribed GOAL: Clear understanding of disease process INSTRUCTIONS: Physician Discharge Instructions: -Follow-up with PCP in 1 to 2 weeks -Please call Dr. Davila at [phone] if any questions regarding hospital stay -Please call nursing station at [phone] if any nursing or medication questions -Return to the emergency room if symptoms worsen Diet: Regular Followup: NONE,NONE [Primary Care Provider] - Time spent managing pt's care (in minutes): 55
[2023-09-18] MEDS: POTASSIUM CL SA 10 MEQ TAB PO ONE (09:38)
[2023-09-18] MEDS: Magnesium Sulfate 2gm IVPB 2 G/50 ML BAG IV ONE (09:38)
--- NOTE | 2023-09-18 09:46 | P.PN ---
Infectious Disease Progress Note Chief Complaint: UTI, Sepsis, AMS Subjective: Improving. In no apparent distress. Denies any new or worsening complaints. Physical Examination Temp Pulse Resp BP Pulse Ox 97.7 F 51 16 158/70 H 97 09/18/23 07:01 09/18/23 07:01 09/18/23 07:01 09/18/23 07:01 09/18/23 07:01 General: Alert, In no apparent distress, Oriented x3 HEENT: Atraumatic, Normocephalic. missing teeth. Respiratory: Normal air movement, unlabored respirations on room air Cardiovascular: Regular rate/rhythm Gastrointestinal: Normal bowel sounds, Soft and benign Integumentary: Pressure ulcer sacrum stage II Neurological: Normal speech Urinary: Owusu catheter (chronic) Laboratory Data -Reviewed Microbiology data -Reviewed Imagings Data: -Reviewed Assessment and Plan Problem list Sepsis Secondary to CAUTI (POA) & Gram Negative Bacteremia Diabetes Mellitus Hypertension Paraplegia Hyperlipidemia Catheter associated urinary tract infection (POA) Gram-negative bacteremia -Blood cultures 09/14: Gram-negative rods in 2 of 4 bottles -Urine culture 09/14: 3+ gram-negative rods -Currently on Rocephin (09/14-) - vancomycin discontinued (09/14-09/16) -Suprapubic catheter exchanged in ED Recommendations -GNR bacteremia/CAUTI: Continue antibiotic therapy x 10 days. - Currently on Rocephin. Awaiting final culture results, will adjust abx as appropriate. Depending on sensitivites, consider Levofloxacin PO to complete remainder of antibiotic course. -Monitor CBC, BMP -Pressure offloading measures. - strict blood glucose control - supportive care Case discussed with Nelson Aguirre
[2023-09-18 10:15] VITALS: BP 149/72; TEMP 97.1
[2023-09-18 11:12] VITALS: O2SAT 96
== END 2023-09-18 10:59 | disposition home health service (06) | DRG 698 ==
LOC: ER 05:58 → ERHOLD 10:05 → 4TH 19:26
PROVIDERS: ADMIT Hospitalist; ATTEND Hospitalist
PROC: 0T9B70Z Drainage of Bladder with Drainage Device, Via Natural or Artificial Opening (ICD-10-PCS; 2023-09-15)
PROC: 02HV33Z Insertion of Infusion Device into Superior Vena Cava, Percutaneous Approach (ICD-10-PCS; principal; 2023-09-16)
DX: T83.511A Infection and inflammatory reaction due to indwelling urethral catheter, initial encounter (principal); A41.51 Sepsis due to Escherichia coli [E. coli]; R65.20 Severe sepsis without septic shock; G93.41 Metabolic encephalopathy; G82.20 Paraplegia, unspecified; E87.20 Acidosis, unspecified; N30.01 Acute cystitis with hematuria; I10 Essential (primary) hypertension; E03.9 Hypothyroidism, unspecified; E78.5 Hyperlipidemia, unspecified; G89.4 Chronic pain syndrome; E11.9 Type 2 diabetes mellitus without complications; L89.152 Pressure ulcer of sacral region, stage 2; F17.200 Nicotine dependence, unspecified, uncomplicated; Z60.2 Problems related to living alone; Z74.01 Bed confinement status; Z79.899 Other long term (current) drug therapy; Z79.890 Hormone replacement therapy; Y84.6 Urinary catheterization as the cause of abnormal reaction of the patient, or of later complication, without mention of misadventure at the time of the procedure
CPT/HCPCS: 36415; 51702; 71045; 74176; 80053; 80069; 80202; 81001; 82140; 82947; 83605; 83735; 84100; 84443; 85025; 85610; 85730; 87040; 87077; 87086; 87088; 87186; 87205; 92523; 92610; 93005; 94010; 94640; 99285; C9113; J0696; J1650; J3475; J7030; J7040; J7613